=== PATIENT | female | born 1950 | race Caucasian/White ===

== ENCOUNTER → 2017-09-08 | Outpatient (CLI) | payer OTHER ==
--- NOTE | 2017-09-10 10:15 | KCIC ---
DATE: 09/08/2017 EXAM: MAMMO ISAI SCREENING BILATERAL HISTORY: Previous left breast cancer COMPARISON: 09/06/2015 The breast parenchyma shows scattered fibroglandular densities. Breast parenchyma level B. FINDINGS: 2-D and 3-D tomosynthesis imaging was performed in CC and MLO projections. There is an unchanged spiculated density with coarse calcifications and associated skin thickening/retraction centrally in the left breast. These coarse calcifications have slowly progressed. No suspicious microcalcifications have developed. The appearance is otherwise unchanged since multiple previous studies. No new or enlarging breast densities are seen. IMPRESSION: Stable mammograms without evidence of malignancy. BI-RADS CATEGORY: 2 BENIGN FINDING(S) RECOMMENDED FOLLOW-UP: 12M 12 MONTH FOLLOW-UP PQRS compliance statement: Patient information was entered into a reminder system with a target due date for the next mammogram. Mammography is a sensitive method for finding small breast cancers, but it does not detect them all and is not a substitute for careful clinical examination. A negative mammogram does not negate a clinically suspicious finding and should not result in delay in biopsying a clinically suspicious abnormality. "Our facility is accredited by the [employer] Mammography [employer]."
== END | disposition home or self-care (01) ==
LOC: KCIC MAMMO 10:23
PROVIDERS: ATTEND Internal Medicine
DX: Z12.31 Encounter for screening mammogram for malignant neoplasm of breast (principal)
CPT/HCPCS: 77063; G0202; 77067

== ENCOUNTER → 2018-09-09 | Outpatient (CLI) | payer MEDICARE, OTHER ==
--- NOTE | 2018-09-09 14:08 | KCIC ---
EXAM: Bilateral digital screening mammogram with tomosynthesis. HISTORY: 67-year-old female with a history of left breast cancer, status post left breast conservation therapy, presents for screening mammography. TECHNIQUE: Full-field digital craniocaudal and mediolateral oblique 2D and 3D tomosynthesis images of both breasts are obtained for evaluation. Computer aided detection with Digital Message DisplayD software version 9.3 was applied. COMPARISON: 09/08/2017 and 09/06/2016 BREAST PARENCHYMAL DENSITY: Level B - Scattered fibroglandular densities. FINDINGS: There is stable increased density, architectural distortion and benign coarse calcifications within the 6:00 position of the right breast, consistent with a lumpectomy bed. There is no new suspicious mammographic finding. IMPRESSION: BI-RADS Category 2: Benign finding(s). RECOMMENDATION: Annual mammography is recommended. If your mammogram demonstrates that you have dense breast tissue, which could hide abnormalities, and if you have other risk factors for breast cancer that have been identified, you might benefit from supplemental screening tests that may be suggested by your ordering physician. Dense breast tissue, in and of itself, is a relatively common condition. This information is not provided to cause undue concern, but rather to raise your awareness and to promote discussion with your physician regarding the presence of other risk factors, in addition to dense breast tissue. A report of your mammography results will be sent to you and your physician. You should contact your physician if you have any questions or concerns regarding this report. Mammography is a sensitive method for finding small breast cancers, but it does not detect them all and is not a substitute for careful clinical examination. A negative mammogram does not negate a clinically suspicious finding and should not result in delay in biopsying a clinically suspicious abnormality. PQRS compliance statement - Patient information was entered into a reminder system with a target due date for the next mammogram. "Our facility is accredited by the [employer]ammography [employer]." Electronically signed by: Leti Melo MD (09/09/2018 2:05 PM) [id number]
== END | disposition home or self-care (01) ==
LOC: KCIC MAMMO 12:02
PROVIDERS: ATTEND Internal Medicine Hematology & Oncology
DX: Z12.31 Encounter for screening mammogram for malignant neoplasm of breast (principal); Z85.3 Personal history of malignant neoplasm of breast
CPT/HCPCS: 77063; 77067

== ENCOUNTER 2018-10-21 14:05 | Emergency (ER) | payer OTHER, MEDICARE ==
[~2018-10-21] VITALS: Ht 160 cm; Wt 80.7 kg
[2018-10-21] MEDS ORDERED: ONDANSETRON PF 4 MG/2 ML VIAL. ONE (14:10)
[2018-10-21] MEDS ORDERED: IV NORMAL SALINE 1000ML BAG 1,000 ML IV SCH (14:23)
[2018-10-21] MEDS ORDERED: MORPHINE SULFATE 4 MG/ML VIAL. IV/SQ PRN (14:30)
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
[2018-10-21] MEDS ORDERED: ONDANSETRON PF 4 MG/2 ML VIAL. IM ONE (14:45)
[2018-10-21] MEDS ORDERED: IOHEXOL 300 MG/ML 100ML VIAL. IV ONE (15:00)
[2018-10-21] MEDS ORDERED: IOHEXOL 300 MG/ML 100ML VIAL. ONE (15:01)
[2018-10-21 15:09] LABS: BASO # 0.1 x10^3/uL (0.0-0.2); BASO % 1 % (0-3); EOS # 0.3 x10^3/uL (0.0-0.7); EOS % 2 % (0-3); HEMATOCRIT 40.3 % (36.0-47.0); HEMOGLOBIN 13.7 g/dL (12.0-15.5); LYMPH # 2.6 x10^3/uL (1.0-4.8); LYMPH % 19 % (24-48); MEAN CORPUSCULAR HEMOGLOBIN 30 pg (25-35); MEAN CORPUSCULAR HGB CONC 34 g/dL (31-37); MEAN CORPUSCULAR VOLUME 90 fL (79-100); MONO % 7 % (0-9); NEUT # 9.4 x10^3uL (1.8-7.7); NEUT % 71 % (31-73); PLATELET COUNT 270 x10^3/uL (140-400); RED CELL DISTRIBUTION WIDTH 13.3 % (11.5-14.5); WHITE BLOOD COUNT 13.3 x10^3/uL (4.0-11.0)
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
[2018-10-21] MEDS ORDERED: CONTRAST GIVEN. MC PRN (15:15)
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
[2018-10-21 15:30] LABS: CALCIUM 8.1 mg/dL (8.5-10.1); CREATININE 0.7 mg/dL (0.6-1.0); POTASSIUM 4.2 mmol/L (3.5-5.1)
[2018-10-21 15:35] LABS: ALBUMIN 3.3 g/dL (3.4-5.0); ALBUMIN/GLOBULIN RATIO 0.9 (1.0-1.7); TOTAL BILIRUBIN 0.3 mg/dL (0.2-1.0); TOTAL PROTEIN 6.9 g/dL (6.4-8.2)
--- NOTE | 2018-10-21 15:47 | EKG ---
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
[2018-10-21] MEDS ORDERED: HYDROmorphone 2 MG/ML VIAL ONE (16:08)
[2018-10-21] MEDS ORDERED: HYDROmorphone 2 MG/ML VIAL IV ONE (16:15)
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
[2018-10-21 16:30] VITALS: BP 153/65
[2018-10-21] MEDS ORDERED: ONDANSETRON PF 4 MG/2 ML VIAL. IV ONE (17:15)
[2018-10-21 17:29] LABS: BILIRUBIN,URINE NEGATIVE (NEG); CLARITY,URINE CLEAR; COLOR,URINE YELLOW; NITRITE,URINE NEGATIVE (NEG); PROTEIN,URINE NEGATIVE (NEG-TRACE); UROBILINOGEN,URINE 0.2 mg/dL (0.2 mg/dL)
[2018-10-21 17:40] LABS: BACTERIA,URINE FEW /HPF (0-FEW); SQUAMOUS EPITHELIAL CELL,UR OCC /LPF; WBC,URINE OCC /HPF (0-4)
[2018-10-21] MEDS ORDERED: ONDA4TAB7 PO (17:49)
[2018-10-21] MEDS ORDERED: OXYC1TAB15 PO (17:49)
== END 2018-10-21 18:33 | disposition home or self-care (01) ==
LOC: ER 14:05
DX: S22.31XA Fracture of one rib, right side, initial encounter for closed fracture (principal); S32.008A Other fracture of unspecified lumbar vertebra, initial encounter for closed fracture; M79.642 Pain in left hand; K80.20 Calculus of gallbladder without cholecystitis without obstruction; F32.9 Major depressive disorder, single episode, unspecified; E11.9 Type 2 diabetes mellitus without complications; E78.00 Pure hypercholesterolemia, unspecified; I10 Essential (primary) hypertension; Z90.710 Acquired absence of both cervix and uterus; Z96.659 Presence of unspecified artificial knee joint; Z88.0 Allergy status to penicillin; Z91.040 Latex allergy status; V43.62XA Car passenger injured in collision with other type car in traffic accident, initial encounter; Y93.89 Activity, other specified; Y92.410 Unspecified street and highway as the place of occurrence of the external cause; Y99.8 Other external cause status
CPT/HCPCS: 36415; 71100; 71260; 73130; 74177; 80053; 81001; 83690; 84484; 85025; 93005; 96372; 96374; 96375; 99285; J1170; J2060; J2270; J2405; J7030; Q9967; 99284

== ENCOUNTER → 2019-09-10 | Outpatient (CLI) | payer MEDICARE, OTHER ==
[~2019-09-10] MED LIST: ONDA4TAB7 PO; OXYC1TAB15 PO
--- NOTE | 2019-09-10 13:15 | KCIC ---
Bilateral digital screening mammograms with 3-D tomosynthesis: Reason for examination: Routine screening. History of left breast cancer with lumpectomy in 2009. Comparison is made to previous studies dated 09/09/2018 and 09/08/2017. Bilateral mammograms in CC and oblique projections were obtained with 2-D imaging and 3-D tomosynthesis imaging on a Siemens Inspiration unit and reviewed on the workstation. Interpretation was made with the benefit of CAD. The skin and nipples show no abnormalities. No abnormal axillary lymph nodes are seen. The breast parenchyma shows scattered fatty and fibroglandular density. (Breast density: Category B.) There are postop changes in the left breast from previous lumpectomy with coarse calcification at the lumpectomy site. There appear to be 3 new circumscribed nodules present in the right breast with the largest located in the 12:00 B position measuring 6.7 mm in greatest dimension and showing a calcified rim. This may represent fat necrosis. Recommend further evaluation with ultrasound. There are no other new dominant masses, suspicious calcifications or architectural distortion. Impression: Small circumscribed lesions in the right breast with the largest measuring approximately 6.7 mm in size showing a calcified rim. This may reflect fat necrosis. Recommend follow-up with ultrasound. BI-RADS Category 0: Incomplete. Needs additional imaging evaluation "Our facility is accredited by the [employer] Mammography Program." This patient's information has been entered into a reminder system for the patient to be notified with the results of her examination and a target date for the next mammogram. Electronically signed by: Asuncion Kern MD (09/10/2019 1:13 PM) [id number]
== END | disposition home or self-care (01) ==
LOC: KCIC MAMMO 09:17
PROVIDERS: ATTEND Internal Medicine Hematology & Oncology
DX: Z12.31 Encounter for screening mammogram for malignant neoplasm of breast (principal); N64.89 Other specified disorders of breast; Z85.3 Personal history of malignant neoplasm of breast
CPT/HCPCS: 77063; 77067

== ENCOUNTER → 2019-09-16 | Outpatient (CLI) | payer MEDICARE, OTHER ==
--- NOTE | 2019-09-16 09:52 | KCIC ---
BREAST RIGHT Clinical Indication: Abnormal screening mammogram. Comparison: Bilateral mammogram 09/10/2019 and 09/09/2018. TECHNIQUE: Real-time ultrasound imaging of the right breast is performed. Findings: Corresponding to the largest nodule on mammogram, at the 12:00 position 3 cm from the nipple there is a 5 mm cystic lesion with a thin echogenic rim that may be an oil cyst. At the 12:00 position 1 cm from the nipple there is a 3 mm complicated cyst. At the 1:00 position 5 cm from the nipple there is a 4 mm complicated cyst. At the 12:00 position 6 cm from the nipple there is a 5 mm probable septated cyst. At the 12:00 position 9 cm from the nipple there is a 7 mm benign cyst. There is no abnormal axillary lymph node. IMPRESSION: 1. At the 12:00 to 1:00 positions of the right breast there are several cysts or complicated cysts. Recommend right breast ultrasound follow-up in 6 months. 2. BI-RADS Category 3, probably benign. Electronically signed by: Papo Quevedo MD (09/16/2019 9:49 AM) [facility]
== END | disposition home or self-care (01) ==
LOC: KCIC US 07:57
PROVIDERS: ATTEND Internal Medicine Hematology & Oncology
DX: N60.01 Solitary cyst of right breast (principal)
CPT/HCPCS: 76641

== ENCOUNTER → 2020-06-15 | Outpatient (CLI) | payer MEDICARE, OTHER ==
--- NOTE | 2020-06-15 13:15 | KCIC ---
Right breast ultrasound COMPARISON: Right breast ultrasound September 16, 2019, mammogram September 10, 2019. HISTORY: Follow-up of probably benign right breast cystic lesions. FINDINGS: At the right upper breast are scattered subcentimeter unilocular anechoic and hypoechoic cystic lesions which are stable to the prior study some which could be coiled cysts based on the prior mammographic features. The imaging features are probably benign. No suspicious abnormality. No axillary adenopathy. IMPRESSION: Stable probably benign right breast cysts as described above. Attention on follow-up right breast ultrasound in one year is advised to document continued stability. BI-RADS Category 3: Probably benign Electronically signed by: Olu Obando MD (06/15/2020 1:12 PM) [id number]
== END | disposition home or self-care (01) ==
LOC: KCIC US 12:28
PROVIDERS: ATTEND Internal Medicine Hematology & Oncology
DX: C50.112 Malignant neoplasm of central portion of left female breast (principal); R92.8 Other abnormal and inconclusive findings on diagnostic imaging of breast; Z17.0 Estrogen receptor positive status [ER+]
CPT/HCPCS: 76641

== ENCOUNTER → 2020-09-26 | Outpatient (CLI) | payer MEDICARE, OTHER ==
--- NOTE | 2020-09-26 15:10 | KCIC ---
Bilateral diagnostic digital mammograms with 3-D tomosynthesis: Reason for examination: History of left breast cancer with lumpectomy. Follow-up for right breast nodules. Comparison is made to previous studies dated back to 09/06/2016. Bilateral mammograms in CC and oblique projections were obtained with 2-D imaging and 3-D tomosynthesis imaging on a Siemens Inspiration unit and reviewed on the workstation. Interpretation was made with the benefit of CAD. The skin and nipples show no interval changes. No abnormal axillary lymph nodes are seen. The breast parenchyma is predominantly fatty. (Breast density: Category A.) There continues be a rim calcified nodule consistent with fat necrosis at the 12:00 position of the right breast. There are also faint nodules anterior and posterior to the rim calcified nodule also probably representing fat necrosis. The left breast shows postoperative changes from lumpectomy. There are no new left breast nodules are suspicious calcifications. There are no new dominant masses, suspicious calcifications or architectural distortion. Impression: Postop changes in the left breast. Small faint benign-appearing nodules anterior and posterior to the rim calcified fat necrosis at the 12:00 position of the right breast. Ultrasound to follow. BI-RAD Category 0: Incomplete. Needs additional imaging evaluation. Right breast ultrasound: Right breast ultrasound including evaluation of the axillary regions of the right breast was performed. At the 12:00 position 1 cm from the nipple, there is a 2.7 mm cyst. At the 12:00 position 3 cm from the nipple, there is a 5.8 mm cystic lesion with echogenic rim consistent with the rim calcified fat necrosis seen on mammogram. At the 12:00 position 6 cm from the nipple, there is a small 3.5 mm nodule consistent with cystic fat necrosis. At the 12:00 position 9 cm from the nipple, there is a 6.5 mm cystic lesion. In the 12:00 position 8 cm from the nipple, there is a 6.1 mm cystic lesion at the 1:00 position 5 cm from the nipple, there continues to be a 2.4 mm hypoechoic lesion consistent with fat necrosis. At the 10:00 position 6.5 cm from the nipple, there is a small 2 mm focus of minimal fibrocystic change. No suspicious-appearing nodules are seen. No abnormal appearing lymph nodes are seen in the axilla. IMPRESSION: Multiple small anechoic and hypoechoic lesions in the 12:00 and 1:00 positions consistent with cystic fat necrosis and showing no significant change. No suspicious lesion seen. Recommend routine mammographic follow-up. BI-RADS Category 2: Benign. "Our facility is accredited by the [employer] Mammography [employer]." This patient's information has been entered into a reminder system for the patient to be notified with the results of her examination and a target date for the next mammogram. Electronically signed by: Asuncion Kern MD (09/26/2020 3:06 PM) [email or web address]
== END ==
LOC: KCIC MAMMO 12:21
PROVIDERS: ATTEND Internal Medicine Hematology & Oncology
DX: R92.2 Inconclusive mammogram (principal); N63.11 Unspecified lump in the right breast, upper outer quadrant; Z90.12 Acquired absence of left breast and nipple
CPT/HCPCS: 76641; 77066; G0279; 77062

== ENCOUNTER → 2021-09-18 | Outpatient (CLI) | payer MEDICARE, OTHER ==
--- NOTE | 2021-09-18 15:17 | KCIC ---
Bilateral diagnostic digital mammograms with 3-D tomosynthesis: Reason for examination: History of left breast cancer with lumpectomy and bone metastases. No current breast complaints. Comparison is made to previous studies dated back to 09/16/2016. Bilateral mammograms in CC and oblique projections were obtained with 2-D imaging and 3-D tomosynthes is imaging on a Siemens Inspiration unit and reviewed on the workstation. Interpretation was made wit h the benefit of CAD. The skin and nipples show no abnormalities. No abnormal axillary lymph nodes are seen. The breast par enchyma shows scattered fatty and fibroglandular density. (Breast density: Category B.) There are pos top changes in the left breast with calcification at the lumpectomy site. There is some rim calcified fat necrosis in the right breast. There continues to be a small 3 mm circumscribed nodule in the ret roareolar position of the right breast 2 cm deep to the nipple. There are no other dominant masses, s uspicious calcifications or architectural distortion. Impression: Postop changes in the left breast. 3 mm circumscribed nodule in the subareolar position of the right breast 2 cm deep to the nipple. Ult rasound to follow. BI-RAD Category 0: Incomplete. Needs additional imaging evaluation. Right breast ultrasound: Comparison is made to previous studies dated 09/26/2020 and 06/15/2020. Ultrasound examination of the right breast and axilla was performed. At the 12:00 position 3 cm from the nipple, there continues to be a 6 mm rim calcified lesion consist ent with calcified fat necrosis seen be mammographically. There also appears be a small 3 mm circumsc ribed nodule with a fibrocystic appearance. No other cystic or solid or solid nodules are seen. No ab normal appearing lymph nodes are seen in the axilla. IMPRESSION: Focal area of calcified fat necrosis at the 12:00 position. Small 3 mm fibrocystic lesion at the retr oareolar position. No suspicious abnormality seen. Recommend routine mammographic follow-up. BI-RADS Category 2: Benign. "Our facility is accredited by the [employer] Mammography [employer]." This patient's information has been entered into a reminder system for the patient to be notified wit h the results of her examination and a target date for the next mammogram. Electronically signed by: Asuncion Kern MD (09/18/2021 3:14 PM) [email or web address]
== END ==
LOC: KCIC MAMMO 12:36
PROVIDERS: ATTEND Internal Medicine Hematology & Oncology
DX: N63.10 Unspecified lump in the right breast, unspecified quadrant (principal); N64.1 Fat necrosis of breast; Z85.3 Personal history of malignant neoplasm of breast
CPT/HCPCS: 76641; 77066; G0279; 77062

== ENCOUNTER 2022-03-13 19:18 | Inpatient (IN) | payer MEDICARE, OTHER ==
[~2022-03-13] VITALS: Ht 160 cm; Wt 81.0 kg
[2022-03-13] MEDS ORDERED: IV NORMAL SALINE 1000ML BAG 1,000 ML IV ONE ×2 (20:30→21:45)
[2022-03-13] MEDS ORDERED: ONDANSETRON PF 4 MG/2 ML VIAL. IVP ONE (20:30)
[2022-03-13] MEDS ORDERED: MORPHINE SULFATE 4 MG/ML INJ. IVP ONE (20:30)
[2022-03-13 21:05] LABS: BASO # 0.1 x10^3/uL (0.0-0.2); BASO % 1 % (0-3); EOS # 0.1 x10^3/uL (0.0-0.7); EOS % 1 % (0-3); HEMATOCRIT 46.1 % (36.0-47.0); HEMOGLOBIN 15.4 g/dL (12.0-15.5); LYMPH # 2.8 x10^3/uL (1.0-4.8); LYMPH % 23 % (24-48); MEAN CORPUSCULAR HEMOGLOBIN 30 pg (25-35); MEAN CORPUSCULAR HGB CONC 33 g/dL (31-37); MEAN CORPUSCULAR VOLUME 89 fL (79-100); MONO # 1.2 x10^3/uL (0.0-1.1); MONO % 10 % (0-9); NEUT # 8.1 x10^3/uL (1.8-7.7); NEUT % 66 % (31-73); PLATELET COUNT 310 x10^3/uL (140-400); RED BLOOD COUNT 5.16 x10^6/uL (3.50-5.40); RED CELL DISTRIBUTION WIDTH 13.5 % (11.5-14.5); WHITE BLOOD COUNT 12.2 x10^3/uL (4.0-11.0)
[2022-03-13 21:14] LABS: CREATININE 0.6 mg/dL (0.6-1.0); GFR 99.1; POTASSIUM 4.2 mmol/L (3.5-5.1)
[2022-03-13 21:20] LABS: ALBUMIN/GLOBULIN RATIO 0.9 (1.0-1.7); MAGNESIUM 2.7 mg/dL (1.8-2.4); TOTAL BILIRUBIN 0.7 mg/dL (0.2-1.0); TOTAL PROTEIN 8.7 g/dL (6.4-8.2)
[2022-03-13] MEDS ORDERED: IOHEXOL 300 MG/ML 100ML VIAL. IV ONE (21:30)
[2022-03-13] MEDS ORDERED: CONTRAST GIVEN. MC PRN (21:30)
[2022-03-13] MEDS ORDERED: METOCLOPRAMIDE HCL 10 MG/2 ML VIAL. IVP ONE (22:00)
--- NOTE | 2022-03-13 22:15 | RAD ---
Exam: CT of abdomen and pelvis with contrast INDICATION: Abdominal pain TECHNIQUE: Sequential axial images through the abdomen and pelvis obtained following the administrati on of 75 mL of Isovue-370 IV contrast. Sagittal and coronal reformatted images were reconstructed fro m the axial data and reviewed. Exposure: One or more of the following in the visualized dose reduction techniques were utilized for this examination: 1. Automated exposure control 2. Adjustment of the MA and/or KV according to patient size 3. Use of iterative of reconstructive technique Comparisons: None FINDINGS: Heart size is normal. No pericardial effusion. Visualized lung bases are clear. No pleural effusion. Mild diffuse hepatic steatosis. Spleen, pancreas and adrenals are unremarkable. Gallstones and within the gallbladder. No perinephric inflammation or hydronephrosis. No renal or ureteral calculi are identified. Bladder is decompressed not well evaluated. Uterus is absent. No abnormal adnexal mass. Few scattered diverticula in the sigmoid colon. Remainder of the large and small bowel are unremarkab le. Appendix is nonidentified. No free intra-abdominal air or fluid. No obstruction. Abdominal aorta has normal course and caliber. Abdominal vasculature is patent. No enlarged intra-abdominal lymph nodes are identified. No suspicious osseous lesions or acute fractures. IMPRESSION: 1. Cholelithiasis. 2. No acute process identified in the abdomen or pelvis. Electronically signed by: Rufina Lee MD (03/13/2022 10:12 PM) [facility]
[2022-03-13] MEDS ORDERED: PROCHLORPERAZINE 10 MG/2 ML VIAL. IV ONE (23:00)
--- NOTE | 2022-03-13 23:08 | PHYS DOC ---
Past Medical History Past Medical History: Cancer, Depression, Diabetes-Type II, High Cholesterol, Hypertension Past Surgical History: Cancer Surgery Additional Past Surgical Histo: lumpectomy Smoking Status: Never Smoker Alcohol Use: None Drug Use: None General Adult EDM: Chief Complaint: NAUSEA/VOMITING/DIARRHEA HPI: HPI: Patient is a 71 year old female with history of diabetes type 2, hypertension, high cholesterol, presented to the ED today complaining of 7 out of 10 epigastric abdominal pain with nausea and vomiting, symptoms have been going on for 3 days. Patient denies any diarrhea. Denies any chest pain or shortness of breath. Denies anything specifically exacerbating or relieving the symptoms Review of Systems: Review of Systems: Constitutional: Denies fever or chills. [] Eyes: Denies change in visual acuity. [] HENT: Denies nasal congestion or sore throat. [] Respiratory: Denies cough or shortness of breath. [] Cardiovascular: Denies chest pain or edema. [] GI: Reports epigastric abdominal pain with nausea and vomiting, denies bloody stools or diarrhea. [] : Denies dysuria. [] Musculoskeletal: Denies back pain or joint pain. [] Integument: Denies rash. [] Neurologic: Denies headache, focal weakness or sensory changes. [] Psychiatric: Denies depression or anxiety. [] Heart Score: C/O Chest Pain: N/A Risk Factors: Risk Factors: DM, Current or recent (<one month) smoker, HTN, HLP, family history of CAD, obesity. Risk Scores: Score 0 - 3: 2.5% MACE over next 6 weeks - Discharge Home Score 4 - 6: 20.3% MACE over next 6 weeks - Admit for Clinical Observation Score 7 - 10: 72.7% MACE over next 6 weeks - Early Invasive Strategies Current Medications: Current Medications Medications (Trade) Dose Ordered Sig/Denise Start Time Stop Time Status Last Admin Dose Admin Info (CONTRAST GIVEN -- Rx MONITORING) 1 each PRN DAILY PRN 03/13/22 21:30 03/15/22 21:29 Iohexol (Omnipaque 300 Mg/ml) 75 ml 1X ONCE 03/13/22 21:30 03/13/22 21:31 DC 03/13/22 21:43 75 ML Metoclopramide HCl (Reglan Vial) 10 mg 1X ONCE 03/13/22 22:00 03/13/22 22:01 DC 03/13/22 21:58 10 MG Morphine Sulfate (Morphine Sulfate) 4 mg 1X ONCE 03/13/22 20:30 03/13/22 20:31 DC 03/13/22 20:55 4 MG Ondansetron HCl (Zofran) 4 mg 1X ONCE 03/13/22 20:30 03/13/22 20:31 DC 03/13/22 20:56 4 MG Prochlorperazine Edisylate (Compazine) 10 mg 1X ONCE 03/13/22 23:00 03/13/22 23:01 UNV Sodium Chloride 1,000 ml @ 1,000 mls/hr 1X ONCE 03/13/22 21:45 03/13/22 22:44 DC 03/13/22 21:45 1,000 MLS/HR Allergies: Allergies: Allergies Coded Allergies Type Severity Reaction Last Updated Verified Penicillins Allergy Intermediate 03/13/22 Yes latex Allergy Intermediate Unknown 03/13/22 Yes Physical Exam: PE: Constitutional: Well developed, well nourished, no acute distress, non-toxic appearance. [] HENT: Normocephalic, atraumatic, bilateral external ears normal, oropharynx moist, no oral exudates, nose normal. [] Eyes: PERRLA, EOMI, conjunctiva normal, no discharge. [] Neck: Normal range of motion, no tenderness, supple, no stridor. [] Cardiovascular:Heart rate regular rhythm, no murmur [] Lungs & Thorax: Bilateral breath sounds clear to auscultation [] Abdomen: Bowel sounds normal, soft, tenderness to the right upper quadrant, epigastric region, negative Womack sign, no right lower quadrant tenderness, no masses, no pulsatile masses. [] Skin: Warm, dry, no erythema, no rash. [] Back: No tenderness, no CVA tenderness. [] Extremities: No tenderness, no cyanosis, no clubbing, ROM intact, no edema. [] Neurologic: Alert and oriented X 3, normal motor function, normal sensory function, no focal deficits noted. [] Psychologic: Affect normal, judgement normal, mood normal. [] Current Patient Data: Labs: Laboratory Tests Test 03/13/22 20:55 White Blood Count 12.2 x10^3/uL (4.0-11.0) H Red Blood Count 5.16 x10^6/uL (3.50-5.40) Hemoglobin 15.4 g/dL (12.0-15.5) Hematocrit 46.1 % (36.0-47.0) Mean Corpuscular Volume 89 fL (79-100) Mean Corpuscular Hemoglobin 30 pg (25-35) Mean Corpuscular Hemoglobin Concent 33 g/dL (31-37) Red Cell Distribution Width 13.5 % (11.5-14.5) Platelet Count 310 x10^3/uL (140-400) Neutrophils (%) (Auto) 66 % (31-73) Lymphocytes (%) (Auto) 23 % (24-48) L Monocytes (%) (Auto) 10 % (0-9) H Eosinophils (%) (Auto) 1 % (0-3) Basophils (%) (Auto) 1 % (0-3) Neutrophils # (Auto) 8.1 x10^3/uL (1.8-7.7) H Lymphocytes # (Auto) 2.8 x10^3/uL (1.0-4.8) Monocytes # (Auto) 1.2 x10^3/uL (0.0-1.1) H Eosinophils # (Auto) 0.1 x10^3/uL (0.0-0.7) Basophils # (Auto) 0.1 x10^3/uL (0.0-0.2) Sodium Level 135 mmol/L (136-145) L Potassium Level 4.2 mmol/L (3.5-5.1) Chloride Level 99 mmol/L (98-107) Carbon Dioxide Level 21 mmol/L (21-32) Anion Gap 15 (6-14) H Blood Urea Nitrogen 39 mg/dL (7-20) H Creatinine 0.6 mg/dL (0.6-1.0) Estimated GFR (Cockcroft-Gault) 99.1 BUN/Creatinine Ratio 65 (6-20) H Glucose Level 169 mg/dL (70-99) H Calcium Level 9.0 mg/dL (8.5-10.1) Magnesium Level 2.7 mg/dL (1.8-2.4) H Total Bilirubin 0.7 mg/dL (0.2-1.0) Aspartate Amino Transferase (AST) 41 U/L (15-37) H Alanine Aminotransferase (ALT) 38 U/L (14-59) Alkaline Phosphatase 88 U/L (46-116) Total Protein 8.7 g/dL (6.4-8.2) H Albumin 4.0 g/dL (3.4-5.0) Albumin/Globulin Ratio 0.9 (1.0-1.7) L Lipase 221 U/L (73-393) Ethyl Alcohol Level < 10 mg/dL (0-10) Laboratory Tests 03/13/22 20:55 Laboratory Tests 03/13/22 20:55 Vital Signs: Vital Signs Date Time Temp Pulse Resp B/P (MAP) Pulse Ox O2 Delivery O2 Flow Rate FiO2 03/13/22 20:55 18 03/13/22 19:56 98.3 83 180/85 (116) 100 Room Air 98.3 EKG: EKG: [] Radiology/Procedures: Radiology/Procedures: []PROCEDURE: CT ABD PELV W/ IV CONTRST ONLY Exam: CT of abdomen and pelvis with contrast INDICATION: Abdominal pain TECHNIQUE: Sequential axial images through the abdomen and pelvis obtained following the administration of 75 mL of Isovue-370 IV contrast. Sagittal and coronal reformatted images were reconstructed from the axial data and reviewed. Exposure: One or more of the following in the visualized dose reduction techniques were utilized for this examination: 1. Automated exposure control 2. Adjustment of the MA and/or KV according to patient size 3. Use of iterative of reconstructive technique Comparisons: None FINDINGS: Heart size is normal. No pericardial effusion. Visualized lung bases are clear. No pleural effusion. Mild diffuse hepatic steatosis. Spleen, pancreas and adrenals are unremarkable. Gallstones and within the gallbladder. No perinephric inflammation or hydronephrosis. No renal or ureteral calculi are identified. Bladder is decompressed not well evaluated. Uterus is absent. No abnormal adnexal mass. Few scattered diverticula in the sigmoid colon. Remainder of the large and small bowel are unremarkable. Appendix is nonidentified. No free intra-abdominal air or fluid. No obstruction. Abdominal aorta has normal course and caliber. Abdominal vasculature is patent. No enlarged intra-abdominal lymph nodes are identified. No suspicious osseous lesions or acute fractures. IMPRESSION: 1. Cholelithiasis. 2. No acute process identified in the abdomen or pelvis. Electronically signed by: Rufina Braswell MD (03/13/2022 10:12 PM) [facility] DICTATED and SIGNED BY: RUFINA BRASWELL MD DATE: 03/13/222206 Course & Med Decision Making: Course & Med Decision Making Pertinent Labs and Imaging studies reviewed. (See chart for details) This a 71-year-old female patient presenting to the ED today with complaints of epigastric abdominal pain, nausea vomiting, symptoms for 3 days. CBC with a WBC of 12.2, CMP with creatinine of 0.6, BUN of 39, glucose of 169 with anion gap of 15. AST 41, ALT 38, ALK 88 CT of the abdomen and pelvis noted for cholelithiasis otherwise no acute findings Patient was given a liter of fluids, morphine, Zofran, still complaining of nausea, given Reglan, another liter of fluid, still complaining of nausea. Given Compazine [address] Medina who will follow up with patient Patient was admitted under Dr. Arredondo. Dr. Bradley will give report in the morning Dragon Disclaimer: Judie Disclaimer: This electronic medical record was generated, in whole or in part, using a voice recognition dictation system. Departure Departure Impression: Primary Impression: Cholelithiasis Qualified Codes: K80.20 - Calculus of gallbladder without cholecystitis without obstruction Additional Impressions: Intractable nausea and vomiting Epigastric abdominal pain Disposition: ADMITTED INPATIENT Condition: STABLE Referrals: ALLYSON ZAYAS MD (PCP) STEPHANIE NETTLES APRN Mar 13, 2022 23:07
--- NOTE | 2022-03-13 23:20 | RAD ---
EXAM: ULTRASOUND ABDOMEN LIMITED CLINICAL HISTORY: Reason: epigastric pain r/o gallstones / Spl. Instructions: / History: COMPARISON: None available. TECHNIQUE: Limited ultrasound examination of the right upper quadrant of the abdomen was performed. FINDINGS: Liver contour is normal. Increased echogenicity of the liver. Gallbladder is partially distended. Gal lstones and within the gallbladder. No pericholecystic fluid or wall thickening. Common bile duct is not well visualized. Right kidney measures 11.5 cm in long axis. No hydronephrosis. Visualized portions aorta and IVC are unremarkable. IMPRESSION: 1. Cholelithiasis without secondary evidence for acute cholecystitis. 2. Hepatic steatosis. 3. No right-sided hydronephrosis. Electronically signed by: Rufina Lee MD (03/13/2022 11:18 PM) [facility]
[2022-03-14] MEDS ORDERED: fentaNYL PF VIAL 100 MCG/2 ML VIAL IVP PRN ×3 (00:15→12:45)
[2022-03-14] MEDS ORDERED: METOCLOPRAMIDE HCL 10 MG/2 ML VIAL. IVP PRN (00:15)
[2022-03-14] MEDS ORDERED: ONDANSETRON PF 4 MG/2 ML VIAL. IVP PRN ×2 (00:15→09:00)
[2022-03-14] MEDS ORDERED: IV NORMAL SALINE 1000ML BAG 1,000 ML IV ONE (00:15)
--- NOTE | 2022-03-14 08:30 | PDOC2 ---
CONSULT Date of Consult Date of Consult DATE: 03/14/22 TIME: 08:26 Reason for Consult Reason for Consult: cholelithiasis Referring Physician Referring Physician: ER Identification/Chief Complaint Chief Complaint vomiting Source Source: Chart review, Patient History of Present Illness Reason for Visit: Started acutely friday with vomiting. Continued Friday, was severe. Has subsided but continued and associated ongoing nausea. feels feverish. Denies diarrhea. Denies any significant pain. Past Medical History Cardiovascular: HTN, Hyperlipidemia Endocrine: Diabetes Past Surgical History Past Surgical History: Hysterectomy, Other (lumpectomy ) Family History Family History: Other (noncontributory to current illness ) Social History No ALCOHOL: none Drugs: None Lives: Alone Current Problem List Problem List Problems Medical Problems: (1) Cholelithiasis Status: Acute (2) Epigastric abdominal pain Status: Acute (3) Intractable nausea and vomiting Status: Acute Current Medications Current Medications Current Medications Sodium Chloride 1,000 ml @ 1,000 mls/hr 1X ONCE IV Last administered on 03/13/22at 20:30; Start 03/13/22 at 20:30; Stop 03/13/22 at 21:29; Status DC Ondansetron HCl (Zofran) 4 mg 1X ONCE IVP Last administered on 03/13/22at 20:56; Start 03/13/22 at 20:30; Stop 03/13/22 at 20:31; Status DC Morphine Sulfate (Morphine Sulfate) 4 mg 1X ONCE IVP Last administered on 03/13/22at 20:55; Start 03/13/22 at 20:30; Stop 03/13/22 at 20:31; Status DC Iohexol (Omnipaque 300 Mg/ml) 75 ml 1X ONCE IV Last administered on 03/13/22at 21:43; Start 03/13/22 at 21:30; Stop 03/13/22 at 21:31; Status DC Info (CONTRAST GIVEN -- Rx MONITORING) 1 each PRN DAILY PRN MC SEE COMMENTS; Start 03/13/22 at 21:30; Stop 03/15/22 at 21:29 Sodium Chloride 1,000 ml @ 1,000 mls/hr 1X ONCE IV Last administered on 03/13/22at 21:45; Start 03/13/22 at 21:45; Stop 03/13/22 at 22:44; Status DC Metoclopramide HCl (Reglan Vial) 10 mg 1X ONCE IVP Last administered on 03/13/22at 21:58; Start 03/13/22 at 22:00; Stop 03/13/22 at 22:01; Status DC Prochlorperazine Edisylate (Compazine) 10 mg 1X ONCE IV Last administered on 03/13/22at 23:30; Start 03/13/22 at 23:00; Stop 03/13/22 at 23:01; Status DC Ondansetron HCl (Zofran) 4 mg PRN Q8HRS PRN IVP NAUSEA/VOMITING; Start 03/14/22 at 00:15; Stop 03/15/22 at 00:14 Fentanyl Citrate (Fentanyl 2ml Vial) 50 mcg PRN Q1HR PRN IVP PAIN; Start at 00:15; Stop 03/15/22 at 00:14 Sodium Chloride 1,000 ml @ 100 mls/hr 1X ONCE IV ; Start 03/14/22 at 00:15; Stop 03/14/22 at 10:14 Metoclopramide HCl (Reglan Vial) 10 mg TID PRN IVP NAUSEA/VOMITING; Start 03/14/22 at 00:15 Active Scripts Active Percocet 5-325 Mg Tablet (Oxycodone/Acetaminophen) 1 Each Tablet 1 Tab PO QID Zofran (Ondansetron Hcl) 4 Mg Tablet 1 Tab PO Q6HRS Allergies Allergies: Coded Allergies: Penicillins (Verified Allergy, Intermediate, 03/13/22) latex (Verified Allergy, Intermediate, Unknown, 03/13/22) ROS General: YES: Fatigue, Malaise PSYCHOLOGICAL ROS: No: Anxiety, Depression Eyes: No Blurry vision, No Double vision HEENT: No: Heacaches, Sore Throat Hematological and Lymphatic: No: Bleeding Problems, Blood Clots Respiratory: No: Cough, SOB with excertion Cardiovascular: No Chest Pain, No Palpitations Gastrointestinal: Yes Other (see hpi) Genitourinary: No Dysuria, No Hematuria Musculoskeletal: No Joint Pain, No Muscle Pain Neurological: No Impaired Coord/balance, No Numbness/Tingling Skin: No Pruritus, No Rash Physical Exam General: Alert, Oriented X3, Cooperative HEENT: Atraumatic, PERRLA Lungs: Clear to auscultation, Normal air movement Heart: Regular rate, Normal S1, Normal S2 Abdomen: Soft, Other (epigastric TTP ) Extremities: No clubbing, No cyanosis Skin: No rashes, No breakdown Neuro: Normal gait, Normal speech Psych/Mental Status: Mental status NL, Mood NL MUSCULOSKELETAL: No deformity, No swelling Vitals VITALS Vital Signs Date Time Temp Pulse Resp B/P (MAP) Pulse Ox O2 Delivery O2 Flow Rate FiO2 03/13/22 21:24 75 20 157/68 (97) 99 Room Air 03/13/22 19:56 98.3 98.3 Labs Labs Laboratory Tests Test 03/13/22 20:55 03/14/22 01:55 White Blood Count 12.2 x10^3/uL (4.0-11.0) Red Blood Count 5.16 x10^6/uL (3.50-5.40) Hemoglobin 15.4 g/dL (12.0-15.5) Hematocrit 46.1 % (36.0-47.0) Mean Corpuscular Volume 89 fL (79-100) Mean Corpuscular Hemoglobin 30 pg (25-35) Mean Corpuscular Hemoglobin Concent 33 g/dL (31-37) Red Cell Distribution Width 13.5 % (11.5-14.5) Platelet Count 310 x10^3/uL (140-400) Neutrophils (%) (Auto) 66 % (31-73) Lymphocytes (%) (Auto) 23 % (24-48) Monocytes (%) (Auto) 10 % (0-9) Eosinophils (%) (Auto) 1 % (0-3) Basophils (%) (Auto) 1 % (0-3) Neutrophils # (Auto) 8.1 x10^3/uL (1.8-7.7) Lymphocytes # (Auto) 2.8 x10^3/uL (1.0-4.8) Monocytes # (Auto) 1.2 x10^3/uL (0.0-1.1) Eosinophils # (Auto) 0.1 x10^3/uL (0.0-0.7) Basophils # (Auto) 0.1 x10^3/uL (0.0-0.2) Sodium Level 135 mmol/L (136-145) Potassium Level 4.2 mmol/L (3.5-5.1) Chloride Level 99 mmol/L (98-107) Carbon Dioxide Level 21 mmol/L (21-32) Anion Gap 15 (6-14) Blood Urea Nitrogen 39 mg/dL (7-20) Creatinine 0.6 mg/dL (0.6-1.0) Estimated GFR (Cockcroft-Gault) 99.1 BUN/Creatinine Ratio 65 (6-20) Glucose Level 169 mg/dL (70-99) Calcium Level 9.0 mg/dL (8.5-10.1) Magnesium Level 2.7 mg/dL (1.8-2.4) Total Bilirubin 0.7 mg/dL (0.2-1.0) Aspartate Amino Transf (AST/SGOT) 41 U/L (15-37) Alanine Aminotransferase (ALT/SGPT) 38 U/L (14-59) Alkaline Phosphatase 88 U/L (46-116) Total Protein 8.7 g/dL (6.4-8.2) Albumin 4.0 g/dL (3.4-5.0) Albumin/Globulin Ratio 0.9 (1.0-1.7) Lipase 221 U/L (73-393) Ethyl Alcohol Level < 10 mg/dL (0-10) SARS-CoV-2 Antigen (Rapid) Negative (NEGATIVE) Laboratory Tests Test 03/13/22 20:55 03/14/22 01:55 White Blood Count 12.2 x10^3/uL (4.0-11.0) Red Blood Count 5.16 x10^6/uL (3.50-5.40) Hemoglobin 15.4 g/dL (12.0-15.5) Hematocrit 46.1 % (36.0-47.0) Mean Corpuscular Volume 89 fL (79-100) Mean Corpuscular Hemoglobin 30 pg (25-35) Mean Corpuscular Hemoglobin Concent 33 g/dL (31-37) Red Cell Distribution Width 13.5 % (11.5-14.5) Platelet Count 310 x10^3/uL (140-400) Neutrophils (%) (Auto) 66 % (31-73) Lymphocytes (%) (Auto) 23 % (24-48) Monocytes (%) (Auto) 10 % (0-9) Eosinophils (%) (Auto) 1 % (0-3) Basophils (%) (Auto) 1 % (0-3) Neutrophils # (Auto) 8.1 x10^3/uL (1.8-7.7) Lymphocytes # (Auto) 2.8 x10^3/uL (1.0-4.8) Monocytes # (Auto) 1.2 x10^3/uL (0.0-1.1) Eosinophils # (Auto) 0.1 x10^3/uL (0.0-0.7) Basophils # (Auto) 0.1 x10^3/uL (0.0-0.2) Sodium Level 135 mmol/L (136-145) Potassium Level 4.2 mmol/L (3.5-5.1) Chloride Level 99 mmol/L (98-107) Carbon Dioxide Level 21 mmol/L (21-32) Anion Gap 15 (6-14) Blood Urea Nitrogen 39 mg/dL (7-20) Creatinine 0.6 mg/dL (0.6-1.0) Estimated GFR (Cockcroft-Gault) 99.1 BUN/Creatinine Ratio 65 (6-20) Glucose Level 169 mg/dL (70-99) Calcium Level 9.0 mg/dL (8.5-10.1) Magnesium Level 2.7 mg/dL (1.8-2.4) Total Bilirubin 0.7 mg/dL (0.2-1.0) Aspartate Amino Transf (AST/SGOT) 41 U/L (15-37) Alanine Aminotransferase (ALT/SGPT) 38 U/L (14-59) Alkaline Phosphatase 88 U/L (46-116) Total Protein 8.7 g/dL (6.4-8.2) Albumin 4.0 g/dL (3.4-5.0) Albumin/Globulin Ratio 0.9 (1.0-1.7) Lipase 221 U/L (73-393) Ethyl Alcohol Level < 10 mg/dL (0-10) SARS-CoV-2 Antigen (Rapid) Negative (NEGATIVE) Assessment/Plan Assessment/Plan cholelithiasis Vomiting DM will tentatively plan lap armani today LUDIN LAZARO APRN Mar 14, 2022 08:30
--- NOTE | 2022-03-14 08:53 | PDOC1 ---
History and Physical Date of Service: DOS: DATE: 03/14/22 TIME: 08:48 Chief Complaint: Chief Complain: Nausea vomiting History of Present Illness: HPI: 71 year old female with history of diabetes type 2, hypertension, high cholesterol, presented to the ED today complaining of 7 out of 10 epigastric abdominal pain with nausea and vomiting, symptoms have been going on for 3 days. Patient denies any diarrhea. Denies any chest pain or shortness of breath. Denies anything specifically exacerbating or relieving the symptoms Past Medical/Surgical History: PMH/PSH: Past Medical History: Cancer, Depression, Diabetes-Type II, High Cholesterol, Hypertension Past Surgical History: lumpectomy Allergies: Allergies: Coded Allergies: Penicillins (Verified Allergy, Intermediate, 03/13/22) latex (Verified Allergy, Intermediate, Unknown, 03/13/22) Family History: Family History: Reviewed with no relative findings in the chart Social History: Social History: Smoking Status: Never Smoker Alcohol Use: None Drug Use: None Current Medications: Current Medications Current Medications Sodium Chloride 1,000 ml @ 1,000 mls/hr 1X ONCE IV Last administered on 03/13/22at 20:30; Start 03/13/22 at 20:30; Stop 03/13/22 at 21:29; Status DC Ondansetron HCl (Zofran) 4 mg 1X ONCE IVP Last administered on 03/13/22at 20:56; Start 03/13/22 at 20:30; Stop 03/13/22 at 20:31; Status DC Morphine Sulfate (Morphine Sulfate) 4 mg 1X ONCE IVP Last administered on 03/13/22at 20:55; Start 03/13/22 at 20:30; Stop 03/13/22 at 20:31; Status DC Iohexol (Omnipaque 300 Mg/ml) 75 ml 1X ONCE IV Last administered on 03/13/22at 21:43; Start 03/13/22 at 21:30; Stop 03/13/22 at 21:31; Status DC Info (CONTRAST GIVEN -- Rx MONITORING) 1 each PRN DAILY PRN MC SEE COMMENTS; Start 03/13/22 at 21:30; Stop 03/15/22 at 21:29 Sodium Chloride 1,000 ml @ 1,000 mls/hr 1X ONCE IV Last administered on 03/13/22at 21:45; Start 03/13/22 at 21:45; Stop 03/13/22 at 22:44; Status DC Metoclopramide HCl (Reglan Vial) 10 mg 1X ONCE IVP Last administered on 03/13/22at 21:58; Start 03/13/22 at 22:00; Stop 03/13/22 at 22:01; Status DC Prochlorperazine Edisylate (Compazine) 10 mg 1X ONCE IV Last administered on 03/13/22at 23:30; Start 03/13/22 at 23:00; Stop 03/13/22 at 23:01; Status DC Ondansetron HCl (Zofran) 4 mg PRN Q8HRS PRN IVP NAUSEA/VOMITING; Start 03/14/22 at 00:15; Stop 03/15/22 at 00:14 Fentanyl Citrate (Fentanyl 2ml Vial) 50 mcg PRN Q1HR PRN IVP PAIN; Start 03/14/22 at 00:15; Stop 03/15/22 at 00:14 Sodium Chloride 1,000 ml @ 100 mls/hr 1X ONCE IV ; Start 03/14/22 at 00:15; Stop 03/14/22 at 10:14 Metoclopramide HCl (Reglan Vial) 10 mg TID PRN IVP NAUSEA/VOMITING; Start 03/14/22 at 00:15 Active Scripts Active Percocet 5-325 Mg Tablet (Oxycodone/Acetaminophen) 1 Each Tablet 1 Tab PO QID Zofran (Ondansetron Hcl) 4 Mg Tablet 1 Tab PO Q6HRS ROS: Review of Systems Review of System REVIEW OF SYSTEMS: GENERAL: Denies weakness SKIN: No bruising, hair changes or rashes. EYES: No blurred, double or loss of vision. NOSE AND THROAT: No history of nosebleeds, hoarseness or sore throat. HEART: No history of palpitations, chest pain or shortness of breath on exertion. LUNGS: Denies cough, hemoptysis, wheezing or shortness of breath. GASTROINTESTINAL: Denies changes in appetite, nausea, vomiting, diarrhea or constipation. GENITOURINARY: No history of frequency, urgency, hesitancy or nocturia. NEUROLOGIC: Denies history of numbness, tingling, or tremor. PSYCHIATRIC: No history of panic, anxiety or depression. ENDOCRINE: No history of heat or cold intolerance, polyuria or polydipsia. EXTREMITIES: Denies joint pain, pain on walking or stiffness. Physical Exam: Vital Signs: Vital Signs Date Time Temp Pulse Resp B/P (MAP) Pulse Ox O2 Delivery O2 Flow Rate FiO2 03/13/22 21:24 75 20 157/68 (97) 99 Room Air 03/13/22 19:56 98.3 98.3 Physcial Exam: General: Well developed, well nourished, no acute distress, well appearing HEENT: Pupils equally round and reactive to light, EOMI, no discharge, normal conjunctiva Neck: Supple, no nuchal rigidity, no JVD, trachea midline, no tenderness Cardiac: RRR, no murmurs, no gallops, no rubs Chest/Lungs: CTAB, no wheeze, no rhonchi, no crackles Abdomen: soft, non-distended, no guarding, no peritoneal signs, mild epigastric discomfort Back: No tenderness Extremities: no edema, pulses intact, non-tender,capillary refill <3 sec bilateral upper and lower extremities, Neuro: Alert and oriented x 4, no focal deficits, normal speech Labs: Labs: Laboratory Tests Test 03/13/22 20:55 03/14/22 01:55 White Blood Count 12.2 x10^3/uL (4.0-11.0) Red Blood Count 5.16 x10^6/uL (3.50-5.40) Hemoglobin 15.4 g/dL (12.0-15.5) Hematocrit 46.1 % (36.0-47.0) Mean Corpuscular Volume 89 fL (79-100) Mean Corpuscular Hemoglobin 30 pg (25-35) Mean Corpuscular Hemoglobin Concent 33 g/dL (31-37) Red Cell Distribution Width 13.5 % (11.5-14.5) Platelet Count 310 x10^3/uL (140-400) Neutrophils (%) (Auto) 66 % (31-73) Lymphocytes (%) (Auto) 23 % (24-48) Monocytes (%) (Auto) 10 % (0-9) Eosinophils (%) (Auto) 1 % (0-3) Basophils (%) (Auto) 1 % (0-3) Neutrophils # (Auto) 8.1 x10^3/uL (1.8-7.7) Lymphocytes # (Auto) 2.8 x10^3/uL (1.0-4.8) Monocytes # (Auto) 1.2 x10^3/uL (0.0-1.1) Eosinophils # (Auto) 0.1 x10^3/uL (0.0-0.7) Basophils # (Auto) 0.1 x10^3/uL (0.0-0.2) Sodium Level 135 mmol/L (136-145) Potassium Level 4.2 mmol/L (3.5-5.1) Chloride Level 99 mmol/L (98-107) Carbon Dioxide Level 21 mmol/L (21-32) Anion Gap 15 (6-14) Blood Urea Nitrogen 39 mg/dL (7-20) Creatinine 0.6 mg/dL (0.6-1.0) Estimated GFR (Cockcroft-Gault) 99.1 BUN/Creatinine Ratio 65 (6-20) Glucose Level 169 mg/dL (70-99) Calcium Level 9.0 mg/dL (8.5-10.1) Magnesium Level 2.7 mg/dL (1.8-2.4) Total Bilirubin 0.7 mg/dL (0.2-1.0) Aspartate Amino Transf (AST/SGOT) 41 U/L (15-37) Alanine Aminotransferase (ALT/SGPT) 38 U/L (14-59) Alkaline Phosphatase 88 U/L (46-116) Total Protein 8.7 g/dL (6.4-8.2) Albumin 4.0 g/dL (3.4-5.0) Albumin/Globulin Ratio 0.9 (1.0-1.7) Lipase 221 U/L (73-393) Ethyl Alcohol Level < 10 mg/dL (0-10) SARS-CoV-2 Antigen (Rapid) Negative (NEGATIVE) Laboratory Tests Test 03/13/22 20:55 03/14/22 01:55 White Blood Count 12.2 x10^3/uL (4.0-11.0) Red Blood Count 5.16 x10^6/uL (3.50-5.40) Hemoglobin 15.4 g/dL (12.0-15.5) Hematocrit 46.1 % (36.0-47.0) Mean Corpuscular Volume 89 fL (79-100) Mean Corpuscular Hemoglobin 30 pg (25-35) Mean Corpuscular Hemoglobin Concent 33 g/dL (31-37) Red Cell Distribution Width 13.5 % (11.5-14.5) Platelet Count 310 x10^3/uL (140-400) Neutrophils (%) (Auto) 66 % (31-73) Lymphocytes (%) (Auto) 23 % (24-48) Monocytes (%) (Auto) 10 % (0-9) Eosinophils (%) (Auto) 1 % (0-3) Basophils (%) (Auto) 1 % (0-3) Neutrophils # (Auto) 8.1 x10^3/uL (1.8-7.7) Lymphocytes # (Auto) 2.8 x10^3/uL (1.0-4.8) Monocytes # (Auto) 1.2 x10^3/uL (0.0-1.1) Eosinophils # (Auto) 0.1 x10^3/uL (0.0-0.7) Basophils # (Auto) 0.1 x10^3/uL (0.0-0.2) Sodium Level 135 mmol/L (136-145) Potassium Level 4.2 mmol/L (3.5-5.1) Chloride Level 99 mmol/L (98-107) Carbon Dioxide Level 21 mmol/L (21-32) Anion Gap 15 (6-14) Blood Urea Nitrogen 39 mg/dL (7-20) Creatinine 0.6 mg/dL (0.6-1.0) Estimated GFR (Cockcroft-Gault) 99.1 BUN/Creatinine Ratio 65 (6-20) Glucose Level 169 mg/dL (70-99) Calcium Level 9.0 mg/dL (8.5-10.1) Magnesium Level 2.7 mg/dL (1.8-2.4) Total Bilirubin 0.7 mg/dL (0.2-1.0) Aspartate Amino Transf (AST/SGOT) 41 U/L (15-37) Alanine Aminotransferase (ALT/SGPT) 38 U/L (14-59) Alkaline Phosphatase 88 U/L (46-116) Total Protein 8.7 g/dL (6.4-8.2) Albumin 4.0 g/dL (3.4-5.0) Albumin/Globulin Ratio 0.9 (1.0-1.7) Lipase 221 U/L (73-393) Ethyl Alcohol Level < 10 mg/dL (0-10) SARS-CoV-2 Antigen (Rapid) Negative (NEGATIVE) Images: Images PROCEDURE: CT ABD PELV W/ IV CONTRST ONLY Exam: CT of abdomen and pelvis with contrast INDICATION: Abdominal pain TECHNIQUE: Sequential axial images through the abdomen and pelvis obtained following the administration of 75 mL of Isovue-370 IV contrast. Sagittal and coronal reformatted images were reconstructed from the axial data and reviewed. Exposure: One or more of the following in the visualized dose reduction techniques were utilized for this examination: 1. Automated exposure control 2. Adjustment of the MA and/or KV according to patient size 3. Use of iterative of reconstructive technique Comparisons: None FINDINGS: Heart size is normal. No pericardial effusion. Visualized lung bases are clear. No pleural effusion. Mild diffuse hepatic steatosis. Spleen, pancreas and adrenals are unremarkable. Gallstones and within the gallbladder. No perinephric inflammation or hydronephrosis. No renal or ureteral calculi are identified. Bladder is decompressed not well evaluated. Uterus is absent. No abnormal adnexal mass. Few scattered diverticula in the sigmoid colon. Remainder of the large and small bowel are unremarkable. Appendix is nonidentified. No free intra-abdominal air or fluid. No obstruction. Abdominal aorta has normal course and caliber. Abdominal vasculature is patent. No enlarged intra-abdominal lymph nodes are identified. No suspicious osseous lesions or acute fractures. IMPRESSION: 1. Cholelithiasis. 2. No acute process identified in the abdomen or pelvis. PROCEDURE: ABDOMEN LTD EXAM: ULTRASOUND ABDOMEN LIMITED CLINICAL HISTORY: Reason: epigastric pain r/o gallstones / Spl. Instructions: / History: COMPARISON: None available. TECHNIQUE: Limited ultrasound examination of the right upper quadrant of the abdomen was performed. FINDINGS: Liver contour is normal. Increased echogenicity of the liver. Gallbladder is partially distended. Gallstones and within the gallbladder. No pericholecystic fluid or wall thickening. Common bile duct is not well visualized. Right kidney measures 11.5 cm in long axis. No hydronephrosis. Visualized portions aorta and IVC are unremarkable. IMPRESSION: 1. Cholelithiasis without secondary evidence for acute cholecystitis. 2. Hepatic steatosis. 3. No right-sided hydronephrosis. Assessment/Plan Assessment/Plan Symptomatic cholelithiasis Acute electrolyte derangementhyponatremia due to volume depletion Prerenal azotemia History of diabetes mellitus type 2 History of hypertension History of dyslipidemia Admit to hospitalist service for further management Surgery consult Possible lap armani today NPO Lovenox for DVT prophylaxis Protonix GI prophylaxis ADA diet CODE STATUS full Discussed with RN and SW Disposition inpatient management as above DPOA: Justifications for Admission Other Justification JED KUMAR MD Mar 14, 2022 08:53
[2022-03-14] MEDS ORDERED: ACETAMINOPHEN 325 MG TABLET. PO PRN (09:00)
[2022-03-14] MEDS ORDERED: diphenhydrAMINE 50 MG/ML VIAL IVP PRN (09:00)
[2022-03-14] MEDS ORDERED: ZOLPIDEM 5 MG TABLET. PO PRN (09:00)
[2022-03-14] MEDS: IV NORMAL SALINE 1000ML BAG 1,000 ML IV SCH ×2 (09:00→20:52)
[2022-03-14] MEDS ORDERED: MORPHINE SULFATE 2 MG/ML INJ. IV PRN (09:00)
[2022-03-14] MEDS ORDERED: diphenhydrAMINE HCL 25 MG CAPSULE PO PRN ×2 (09:00)
[2022-03-14] MEDS ORDERED: LORazepam 0.5 MG TABLET PO PRN (09:00)
[2022-03-14] MEDS ORDERED: oxyCODONE/APAP 5/325 1 TAB TABLET PO PRN (09:00)
[2022-03-14] MEDS ORDERED: PROCHLORPERAZINE 10 MG/2 ML VIAL. IV PRN (09:00)
[2022-03-14] MEDS ORDERED: DOCUSATE SODIUM 100 MG CAPSULE. PO PRN (09:00)
[2022-03-14] MEDS ORDERED: SENNOSIDES 8.6 MG TABLET PO PRN (09:00)
[2022-03-14] MEDS ORDERED: DEXTROSE 50% 25 GM / 50ML DISP.SYRIN. IV PRN (09:00)
[2022-03-14 09:01] VITALS: BP 154/64
[2022-03-14] MEDS: ENOXAPARIN 40 MG/0.4 ML SYRINGE. SQ SCH (10:00)
[2022-03-14 11:00] VITALS: BP 154/70
[2022-03-14] MEDS ORDERED: PROPOFOL 10 MG/ML (20ML) VIAL. IV ONE (11:11)
[2022-03-14] MEDS ORDERED: ONDANSETRON PF 4 MG/2 ML VIAL. ONE (11:11)
[2022-03-14] MEDS ORDERED: ROCURONIUM 50 MG/5 ML VIAL. ONE (11:12)
[2022-03-14] MEDS ORDERED: DEXAMETHASONE SOD PHOS 4 MG/ML VIAL ONE (11:12)
[2022-03-14] MEDS ORDERED: fentaNYL PF VIAL 100 MCG/2 ML VIAL ONE (11:16)
[2022-03-14] MEDS: PANTOPRAZOLE 40 MG TABLET.DR. PO SCH (11:30)
[2022-03-14] MEDS: INSULIN LISPRO 300 UNITS/3 ML VIAL. SQ SCH ×2 (12:00→16:26)
[2022-03-14] MEDS ORDERED: PROCHLORPERAZINE 10 MG/2 ML VIAL. IVP PRN (12:45)
[2022-03-14] MEDS ORDERED: MORPHINE SULFATE 2 MG/ML INJ. IVP PRN (12:45)
[2022-03-14] MEDS ORDERED: IV RINGERS,LACTATED 1000ML 1,000 ML IV SCH (12:45)
[2022-03-14] MEDS ORDERED: HYDROmorphone 2 MG/ML INJ. IVP PRN (12:45)
[2022-03-14] MEDS ORDERED: BUPIVACAINE-EPI 0.5% 30 ML VIAL KIT. ONE (13:14)
[2022-03-14] MEDS ORDERED: SURGICEL HEMOSTAT 4X8 EACH. ONE ×3 (13:15→14:19)
[2022-03-14] MEDS ORDERED: IOHEXOL 300 MG/ML 50 ML VIAL. ONE (13:15)
[2022-03-14] MEDS ORDERED: GLYCOPYRROLATE 1 MG/5 ML VIAL. ONE (13:56)
[2022-03-14] MEDS ORDERED: SEVOFLURANE 61 TO 120 MINUTES. IH ONE (14:21)
[2022-03-14] MEDS ORDERED: INSULIN LISPRO 100 UNIT/ML 3ML VIAL for OP,RR ONLY. SQ PRN (14:45)
[2022-03-14] MEDS ORDERED: HYDROmorphone 2 MG/ML INJ. ONE (14:48)
--- NOTE | 2022-03-14 14:53 | PDOC4 ---
Operative Note Operative Note Operative Note: Preoperative Diagnosis: Symptomatic cholelithiasis Postoperative Diagnosis: Same Procedure: Laparoscopic cholecystectomy with intraoperative cholangiogram Surgeons: Adam Anesthesia: Gen. Estimated Blood Loss: 100 mL Specimen: Gallbladder to pathology Drains: None Complications: None Indications: The patient is a 71-year-old female who was admitted with suspected symptomatic cholelithiasis. Surgical treatment was offered by means of a laparoscopic cholecystectomy. The risks of surgery were discussed which include bleeding, infection, bile duct injury, bile leak, pain, the potential for additional surgeries or procedures. The patient understands and would like to proceed. Description: The patient was taken to the operating room and laid supine on the operating table. General anesthesia was performed. The abdomen was prepped with ChloraPrep and draped in a standard surgical fashion. A small infraumbilical incision was made with a scalpel. The Veress needle was then inserted and a pneumoperitoneum was then created. A 5 mm trocar was then inserted and the laparoscope was introduced. In the upper midabdomen an 11 mm trocar was inserted and in the right upper quadrant two 2.3 mm mini lap graspers were inserted. The liver showed nodular changes consistent with chronic inflammation likely from hepatic steatosis. The gallbladder was retracted cephalad. The cystic duct was dissected free from surrounding tissues. One clip was placed on the duct near the gallbladder junction. An opening was made in the duct and a cholangiocatheter placed within and secured with a clip. Using contrast dye and fluoroscopy an intraoperative cholangiogram was performed that appeared unremarkable. The clip and catheter were then withdrawn. Three clips were placed on the cystic duct and it was divided. The cystic artery was then identified, dissected free, doubly clipped and divided as well. The gallbladder was then mobilized away from the liver with cautery. Due to the nodular changes of the liver the plane of separation was very thin. There was some oozing from the gallbladder fossa and a Surgicel pack was applied to assist with this. The gallbladder was then placed in an endoscopic bag and extracted at the superior trocar site. The fascia there was closed with an 0 Vicryl suture and infiltrated with 0.5% marcaine. All blood and irrigation fluid was suctioned and hemostasis was good. The remaining ports were removed and the pneumoperitoneum was relieved. The skin incisions were closed using 4-0 Monocryl suture. Steri-Strips and dressings were then applied. The patient tolerated the procedure well and was sent to the recovery room in stable condition. At the end of the case all counts were correct. JUSTINE PONCE MD Mar 14, 2022 14:53
[2022-03-14] MEDS ORDERED: HYDROcodone/APAP 5/325MG 1 TAB TABLET PO PRN (15:00)
--- NOTE | 2022-03-14 15:06 | RAD ---
Interoperative Cholangiogram: Technique: Contrast is introduced into the cystic duct during the performance of a laparoscopic chol ecystectomy and spot views were obtained on a portable C-arm for an intraoperative cholangiogram. Total fluoroscopic time: 23 seconds Total fluoroscopic spot images: 4 Findings: The central biliary tree is visualized and appears normal. No filling defects are seen. Contrast is s een in the duodenum. Impression: No evidence of a retained stone. Electronically signed by: Stephen Lentz MD (03/14/2022 3:03 PM) [id number]
[2022-03-14] MEDS ORDERED: PROCHLORPERAZINE 10 MG/2 ML VIAL. ONE (15:32)
[2022-03-14 16:00] VITALS: BP 144/72
[2022-03-14 16:18] VITALS: BP 143/70
--- NOTE | 2022-03-14 16:27 | NUR ---
non-administered Humalog @6737. pt blood sugar is 198 and shes not eating
[2022-03-14] MEDS: MORPHINE SULFATE 2 MG/ML INJ. IVP PRN ×2 (16:35→20:49)
[2022-03-14 19:00] VITALS: BP 133/70
[2022-03-14 23:03] VITALS: BP 129/73
[2022-03-15] MEDS: MORPHINE SULFATE 2 MG/ML INJ. IVP PRN ×2 (00:30→03:55)
[2022-03-15 03:00] VITALS: BP 176/65
[2022-03-15] MEDS: oxyCODONE/APAP 5/325 1 TAB TABLET PO PRN ×2 (05:55→10:44)
[2022-03-15 07:30] VITALS: BP 161/53
[2022-03-15] MEDS: IV NORMAL SALINE 1000ML BAG 1,000 ML IV SCH (07:53)
[2022-03-15] MEDS: PANTOPRAZOLE 40 MG TABLET.DR. PO SCH (07:54)
[2022-03-15] MEDS: INSULIN LISPRO 300 UNITS/3 ML VIAL. SQ SCH ×2 (08:00→13:46)
[2022-03-15 08:34] LABS: BASO % 0 % (0-3); EOS % 0 % (0-3); HEMATOCRIT 37.5 % (36.0-47.0); HEMOGLOBIN 12.1 g/dL (12.0-15.5); LYMPH # 1.9 x10^3/uL (1.0-4.8); LYMPH % 11 % (24-48); MEAN CORPUSCULAR HEMOGLOBIN 30 pg (25-35); MEAN CORPUSCULAR HGB CONC 32 g/dL (31-37); MEAN CORPUSCULAR VOLUME 91 fL (79-100); MONO % 12 % (0-9); NEUT # 13.1 x10^3/uL (1.8-7.7); NEUT % 77 % (31-73); PLATELET COUNT 270 x10^3/uL (140-400); RED BLOOD COUNT 4.11 x10^6/uL (3.50-5.40); RED CELL DISTRIBUTION WIDTH 13.3 % (11.5-14.5); WHITE BLOOD COUNT 17.1 x10^3/uL (4.0-11.0)
[2022-03-15 08:48] LABS: ALBUMIN 3.3 g/dL (3.4-5.0); ALBUMIN/GLOBULIN RATIO 0.8 (1.0-1.7); CALCIUM 8.2 mg/dL (8.5-10.1); CREATININE 0.7 mg/dL (0.6-1.0); POTASSIUM 4.3 mmol/L (3.5-5.1); TOTAL BILIRUBIN 0.7 mg/dL (0.2-1.0); TOTAL PROTEIN 7.2 g/dL (6.4-8.2)
[2022-03-15 09:07] LABS: % BANDS 3 % (0-9); % LYMPHS 8 % (24-48); % MONOS 4 % (0-10); % SEGS 85 % (35-66)
[2022-03-15 09:08] LABS: PLT ESTIMATE ADEQUATE (ADEQUATE)
[2022-03-15] MEDS: ENOXAPARIN 40 MG/0.4 ML SYRINGE. SQ SCH (09:41)
[2022-03-15 10:58] LABS: MAGNESIUM 2.2 mg/dL (1.8-2.4); PHOSPHORUS 2.8 mg/dL (2.6-4.7)
[2022-03-15 11:00] VITALS: BP 142/58
--- NOTE | 2022-03-15 11:33 | PDOC ---
[facility] PROGRESS NOTE Date of Service DOS: DATE: 03/15/22 TIME: 11:09 Chief Complaint Chief Complaint Symptomatic cholelithiasis - s/p lap chol on 03/14/2022 Acute electrolyte derangementhyponatremia due to volume depletion Prerenal azotemia History of diabetes mellitus type 2 -hold Metformin for 36 hours after contrast administration History of hypertension History of dyslipidemia Leukocytosis -due to cholecystitis and likely stress-induced. Can follow trend outpatient Admit to hospitalist service for further management Surgery consult ADAT Lovenox for DVT prophylaxis Protonix GI prophylaxis ADA diet CODE STATUS full Discussed with RN and SW Disposition inpatient management as above DPOA: History of Present Illness History of Present Illness 71 year old female with history of diabetes type 2, hypertension, high cholesterol, presented to the ED today complaining of 7 out of 10 epigastric abdominal pain with nausea and vomiting, symptoms have been going on for 3 days. Patient denies any diarrhea. Denies any chest pain or shortness of breath. Denies anything specifically exacerbating or relieving the symptoms 03/15: Uncomplicated lap armani on 03/14/2022. WBC today elevated at 17 and glucose in upper 170s. Symptomatically able to eat breakfast without signific ant pain she is belching passing flatus no bowel movement. No dysuria no shortness of breath or chest pain. She is asking if she can be discharged home and have medication sent to [facility] in [place]. Awaiting repeat surgical eval postoperatively on day 1. Vitals/I&O Vitals/I&O: Vital Signs Date Time Temp Pulse Resp B/P (MAP) Pulse Ox O2 Delivery O2 Flow Rate FiO2 03/15/22 07:30 98.1 90 20 161/53 (89) 97 Room Air 98.1 03/14/22 15:40 6.0 I & O 03/14/22 03/14/22 03/15/22 15:00 23:00 07:00 Intake Total 1010 ml 200 ml Output Total 100 ml Balance 910 ml 200 ml Physical Exam General: Alert, Oriented X3, Cooperative Heart: Regular rate, Normal S1, Normal S2 Abdomen: Soft, Other (epigastric TTP ) Extremities: No clubbing, No cyanosis Skin: No rashes, No breakdown Labs Labs: Laboratory Tests Test 03/14/22 15:16 03/14/22 16:21 03/14/22 20:58 03/15/22 07:36 Glucose (Fingerstick) 182 mg/dL (70-99) 198 mg/dL (70-99) 211 mg/dL (70-99) 179 mg/dL (70-99) Test 03/15/22 07:55 White Blood Count 17.1 x10^3/uL (4.0-11.0) Red Blood Count 4.11 x10^6/uL (3.50-5.40) Hemoglobin 12.1 g/dL (12.0-15.5) Hematocrit 37.5 % (36.0-47.0) Mean Corpuscular Volume 91 fL (79-100) Mean Corpuscular Hemoglobin 30 pg (25-35) Mean Corpuscular Hemoglobin Concent 32 g/dL (31-37) Red Cell Distribution Width 13.3 % (11.5-14.5) Platelet Count 270 x10^3/uL (140-400) Neutrophils (%) (Auto) 77 % (31-73) Lymphocytes (%) (Auto) 11 % (24-48) Monocytes (%) (Auto) 12 % (0-9) Eosinophils (%) (Auto) 0 % (0-3) Basophils (%) (Auto) 0 % (0-3) Neutrophils # (Auto) 13.1 x10^3/uL (1.8-7.7) Lymphocytes # (Auto) 1.9 x10^3/uL (1.0-4.8) Monocytes # (Auto) 2.0 x10^3/uL (0.0-1.1) Eosinophils # (Auto) 0.0 x10^3/uL (0.0-0.7) Basophils # (Auto) 0.0 x10^3/uL (0.0-0.2) Segmented Neutrophils % 85 % (35-66) Band Neutrophils % 3 % (0-9) Lymphocytes % 8 % (24-48) Monocytes % 4 % (0-10) Platelet Estimate Adequate (ADEQUATE) Sodium Level 134 mmol/L (136-145) Potassium Level 4.3 mmol/L (3.5-5.1) Chloride Level 100 mmol/L (98-107) Carbon Dioxide Level 18 mmol/L (21-32) Anion Gap 16 (6-14) Blood Urea Nitrogen 22 mg/dL (7-20) Creatinine 0.7 mg/dL (0.6-1.0) Estimated GFR (Cockcroft-Gault) 83.0 BUN/Creatinine Ratio 31 (6-20) Glucose Level 199 mg/dL (70-99) Calcium Level 8.2 mg/dL (8.5-10.1) Phosphorus Level 2.8 mg/dL (2.6-4.7) Magnesium Level 2.2 mg/dL (1.8-2.4) Total Bilirubin 0.7 mg/dL (0.2-1.0) Aspartate Amino Transf (AST/SGOT) 34 U/L (15-37) Alanine Aminotransferase (ALT/SGPT) 37 U/L (14-59) Alkaline Phosphatase 68 U/L (46-116) Total Protein 7.2 g/dL (6.4-8.2) Albumin 3.3 g/dL (3.4-5.0) Albumin/Globulin Ratio 0.8 (1.0-1.7) Assessment and Plan Assessmemt and Plan Problems Medical Problems: (1) Cholelithiasis Status: Acute (2) Epigastric abdominal pain Status: Acute (3) Intractable nausea and vomiting Status: Acute Comment Review of Relevant I have reviewed the following items linda (where applicable) has been applied. Medications: Current Medications Medications (Trade) Dose Ordered Sig/Denise Route PRN Reason Start Time Stop Time Status Last Admin Dose Admin Insulin Human Lispro (HumaLOG) 0-7 UNITS TIDWMEALS SQ 03/14/22 12:00 03/15/22 08:00 Pantoprazole Sodium (Protonix) 40 mg DAILYAC PO 03/14/22 11:30 03/15/22 07:54 Ringer's Solution 1,000 ml @ 30 mls/hr Q24H IV 03/14/22 12:45 03/15/22 00:44 DC 03/14/22 12:39 Prochlorperazine Edisylate (Compazine) 5 mg PACU PRN PRN IVP NAUSEA, MRX1 03/14/22 12:45 03/15/22 12:44 03/14/22 15:34 Bupivacaine HCl/ Epinephrine Bitart (Sensorcain-Epi 0.5% Kit) 30 ml STK-MED ONCE .ROUTE 03/14/22 13:14 4/14/22 13:15 DC 03/14/22 14:07 Iohexol (Omnipaque 300 Mg/ml) 50 ml STK-MED ONCE .ROUTE 03/14/22 13:15 03/14/22 13:15 DC 03/14/22 14:18 Cellulose (Surgicel Hemostat 4x8) 1 each STK-MED ONCE .ROUTE 03/14/22 13:15 03/14/22 13:15 DC 03/14/22 14:21 Cellulose (Surgicel Hemostat 4x8) 1 each STK-MED ONCE .ROUTE 03/14/22 14:19 03/14/22 14:19 DC 03/14/22 14:34 Insulin Human Lispro (HumaLOG VIAL for OP,RR ONLY) 0-10 units PRN Q1HR PRN SQ PER PROTOCOL 03/14/22 14:45 03/15/22 14:44 03/14/22 15:18 Justifications for Admission Other Justification Symptomati cholelithiasis KATHERIN YADAV MD Mar 15, 2022 11:33
[2022-03-15] MEDS ORDERED: OXYC1TAB15 PO (12:10)
--- NOTE | 2022-03-15 12:12 | PDOC3 ---
Discharge Summary Visit Information Date of Admission: Mar 13, 2022 Date of Discharge: Mar 15, 2022 Admitting Diagnosis: Symptomatic cholelithiasis/cholecystitis Final Diagnosis Problems Medical Problems: (1) Cholelithiasis Status: Acute (2) Epigastric abdominal pain Status: Acute (3) Intractable nausea and vomiting Status: Acute Brief Hospital Course Allergies Allergies Coded Allergies Type Severity Reaction Last Updated Verified Penicillins Allergy Intermediate 03/13/22 Yes latex Allergy Intermediate Unknown 03/13/22 Yes Vital Signs Vital Signs Date Time Temp Pulse Resp B/P (MAP) Pulse Ox O2 Delivery O2 Flow Rate FiO2 03/15/22 11:14 Room Air 03/15/22 11:00 97.9 87 20 142/58 (86) 96 97.9 03/14/22 15:40 6.0 Lab Results Laboratory Tests Test 03/13/22 20:55 03/14/22 01:55 03/14/22 15:16 03/14/22 16:21 White Blood Count 12.2 x10^3/uL (4.0-11.0) Red Blood Count 5.16 x10^6/uL (3.50-5.40) Hemoglobin 15.4 g/dL (12.0-15.5) Hematocrit 46.1 % (36.0-47.0) Mean Corpuscular Volume 89 fL (79-100) Mean Corpuscular Hemoglobin 30 pg (25-35) Mean Corpuscular Hemoglobin Concent 33 g/dL (31-37) Red Cell Distribution Width 13.5 % (11.5-14.5) Platelet Count 310 x10^3/uL (140-400) Neutrophils (%) (Auto) 66 % (31-73) Lymphocytes (%) (Auto) 23 % (24-48) Monocytes (%) (Auto) 10 % (0-9) Eosinophils (%) (Auto) 1 % (0-3) Basophils (%) (Auto) 1 % (0-3) Neutrophils # (Auto) 8.1 x10^3/uL (1.8-7.7) Lymphocytes # (Auto) 2.8 x10^3/uL (1.0-4.8) Monocytes # (Auto) 1.2 x10^3/uL (0.0-1.1) Eosinophils # (Auto) 0.1 x10^3/uL (0.0-0.7) Basophils # (Auto) 0.1 x10^3/uL (0.0-0.2) Sodium Level 135 mmol/L (136-145) Potassium Level 4.2 mmol/L (3.5-5.1) Chloride Level 99 mmol/L (98-107) Carbon Dioxide Level 21 mmol/L (21-32) Anion Gap 15 (6-14) Blood Urea Nitrogen 39 mg/dL (7-20) Creatinine 0.6 mg/dL (0.6-1.0) Estimated GFR (Cockcroft-Gault) 99.1 BUN/Creatinine Ratio 65 (6-20) Glucose Level 169 mg/dL (70-99) Calcium Level 9.0 mg/dL (8.5-10.1) Magnesium Level 2.7 mg/dL (1.8-2.4) Total Bilirubin 0.7 mg/dL (0.2-1.0) Aspartate Amino Transf (AST/SGOT) 41 U/L (15-37) Alanine Aminotransferase (ALT/SGPT) 38 U/L (14-59) Alkaline Phosphatase 88 U/L (46-116) Total Protein 8.7 g/dL (6.4-8.2) Albumin 4.0 g/dL (3.4-5.0) Albumin/Globulin Ratio 0.9 (1.0-1.7) Lipase 221 U/L (73-393) Ethyl Alcohol Level < 10 mg/dL (0-10) Coronavirus (COVID-19)(PCR) Not detected (NOT DETECTD) SARS-CoV-2 Antigen (Rapid) Negative (NEGATIVE) Glucose (Fingerstick) 182 mg/dL (70-99) 198 mg/dL (70-99) Test 03/14/22 20:58 03/15/22 07:36 03/15/22 07:55 03/15/22 12:05 Glucose (Fingerstick) 211 mg/dL (70-99) 179 mg/dL (70-99) 172 mg/dL (70-99) White Blood Count 17.1 x10^3/uL (4.0-11.0) Red Blood Count 4.11 x10^6/uL (3.50-5.40) Hemoglobin 12.1 g/dL (12.0-15.5) Hematocrit 37.5 % (36.0-47.0) Mean Corpuscular Volume 91 fL (79-100) Mean Corpuscular Hemoglobin 30 pg (25-35) Mean Corpuscular Hemoglobin Concent 32 g/dL (31-37) Red Cell Distribution Width 13.3 % (11.5-14.5) Platelet Count 270 x10^3/uL (140-400) Neutrophils (%) (Auto) 77 % (31-73) Lymphocytes (%) (Auto) 11 % (24-48) Monocytes (%) (Auto) 12 % (0-9) Eosinophils (%) (Auto) 0 % (0-3) Basophils (%) (Auto) 0 % (0-3) Neutrophils # (Auto) 13.1 x10^3/uL (1.8-7.7) Lymphocytes # (Auto) 1.9 x10^3/uL (1.0-4.8) Monocytes # (Auto) 2.0 x10^3/uL (0.0-1.1) Eosinophils # (Auto) 0.0 x10^3/uL (0.0-0.7) Basophils # (Auto) 0.0 x10^3/uL (0.0-0.2) Segmented Neutrophils % 85 % (35-66) Band Neutrophils % 3 % (0-9) Lymphocytes % 8 % (24-48) Monocytes % 4 % (0-10) Platelet Estimate Adequate (ADEQUATE) Sodium Level 134 mmol/L (136-145) Potassium Level 4.3 mmol/L (3.5-5.1) Chloride Level 100 mmol/L (98-107) Carbon Dioxide Level 18 mmol/L (21-32) Anion Gap 16 (6-14) Blood Urea Nitrogen 22 mg/dL (7-20) Creatinine 0.7 mg/dL (0.6-1.0) Estimated GFR (Cockcroft-Gault) 83.0 BUN/Creatinine Ratio 31 (6-20) Glucose Level 199 mg/dL (70-99) Calcium Level 8.2 mg/dL (8.5-10.1) Phosphorus Level 2.8 mg/dL (2.6-4.7) Magnesium Level 2.2 mg/dL (1.8-2.4) Total Bilirubin 0.7 mg/dL (0.2-1.0) Aspartate Amino Transf (AST/SGOT) 34 U/L (15-37) Alanine Aminotransferase (ALT/SGPT) 37 U/L (14-59) Alkaline Phosphatase 68 U/L (46-116) Total Protein 7.2 g/dL (6.4-8.2) Albumin 3.3 g/dL (3.4-5.0) Albumin/Globulin Ratio 0.8 (1.0-1.7) Laboratory Tests Test 03/14/22 15:16 03/14/22 16:21 03/14/22 20:58 03/15/22 07:36 Glucose (Fingerstick) 182 mg/dL (70-99) 198 mg/dL (70-99) 211 mg/dL (70-99) 179 mg/dL (70-99) Test 03/15/22 07:55 03/15/22 12:05 White Blood Count 17.1 x10^3/uL (4.0-11.0) Red Blood Count 4.11 x10^6/uL (3.50-5.40) Hemoglobin 12.1 g/dL (12.0-15.5) Hematocrit 37.5 % (36.0-47.0) Mean Corpuscular Volume 91 fL (79-100) Mean Corpuscular Hemoglobin 30 pg (25-35) Mean Corpuscular Hemoglobin Concent 32 g/dL (31-37) Red Cell Distribution Width 13.3 % (11.5-14.5) Platelet Count 270 x10^3/uL (140-400) Neutrophils (%) (Auto) 77 % (31-73) Lymphocytes (%) (Auto) 11 % (24-48) Monocytes (%) (Auto) 12 % (0-9) Eosinophils (%) (Auto) 0 % (0-3) Basophils (%) (Auto) 0 % (0-3) Neutrophils # (Auto) 13.1 x10^3/uL (1.8-7.7) Lymphocytes # (Auto) 1.9 x10^3/uL (1.0-4.8) Monocytes # (Auto) 2.0 x10^3/uL (0.0-1.1) Eosinophils # (Auto) 0.0 x10^3/uL (0.0-0.7) Basophils # (Auto) 0.0 x10^3/uL (0.0-0.2) Segmented Neutrophils % 85 % (35-66) Band Neutrophils % 3 % (0-9) Lymphocytes % 8 % (24-48) Monocytes % 4 % (0-10) Platelet Estimate Adequate (ADEQUATE) Sodium Level 134 mmol/L (136-145) Potassium Level 4.3 mmol/L (3.5-5.1) Chloride Level 100 mmol/L (98-107) Carbon Dioxide Level 18 mmol/L (21-32) Anion Gap 16 (6-14) Blood Urea Nitrogen 22 mg/dL (7-20) Creatinine 0.7 mg/dL (0.6-1.0) Estimated GFR (Cockcroft-Gault) 83.0 BUN/Creatinine Ratio 31 (6-20) Glucose Level 199 mg/dL (70-99) Calcium Level 8.2 mg/dL (8.5-10.1) Phosphorus Level 2.8 mg/dL (2.6-4.7) Magnesium Level 2.2 mg/dL (1.8-2.4) Total Bilirubin 0.7 mg/dL (0.2-1.0) Aspartate Amino Transf (AST/SGOT) 34 U/L (15-37) Alanine Aminotransferase (ALT/SGPT) 37 U/L (14-59) Alkaline Phosphatase 68 U/L (46-116) Total Protein 7.2 g/dL (6.4-8.2) Albumin 3.3 g/dL (3.4-5.0) Albumin/Globulin Ratio 0.8 (1.0-1.7) Glucose (Fingerstick) 172 mg/dL (70-99) Brief Hospital Course 71 year old female with history of diabetes type 2, hypertension, high cholesterol, presented to the ED today complaining of 7 out of 10 epigastric abdominal pain with nausea and vomiting, symptoms have been going on for 3 days. Patient denies any diarrhea. Denies any chest pain or shortness of breath. Denies anything specifically exacerbating or relieving the symptoms 03/15: Uncomplicated lap armani on 03/14/2022. WBC today elevated at 17 and glucose in upper 170s. Symptomatically able to eat breakfast without significant pain she is belching passing flatus no bowel movement. No dysuria no shortness of breath or chest pain. She is asking if she can be discharged home and have medication sent to [facility] in [place]. Ok for d/c on surgical eval postoperatively on day 1. Consults: general surgery Problem list: Symptomatic cholelithiasis - s/p lap chol on 03/14/2022 Acute electrolyte derangementhyponatremia due to volume depletion Prerenal azotemia History of diabetes mellitus type 2 -hold Metformin for 36 hours after contrast administration History of hypertension History of dyslipidemia Leukocytosis -due to cholecystitis and likely stress-induced. Can follow trend outpatient Greater than 30 minutes spent on discharge home with self care. Discharge Information Condition at Discharge: Improved Follow Up: Weeks Disposition/Orders: D/C to Home Scheduled Ondansetron Hcl (Zofran) 4 Mg Tablet, 1 TAB PO Q6HRS, #20 Prescribed by: ELAINE DELGADO MD on 10/21/18 1749 Scheduled PRN Oxycodone/Apap 5-325 (Percocet 5-325 Mg Tablet ) 1 Each Tablet, 1 TAB PO PRN Q6HRS PRN for SEVERE PAIN 7-10 for 6 Days, #12 Prescribed by: KATHERIN YADAV MD on 03/15/22 1211 Justicifation of Admission Dx: Justifications for Admission: Justification of Admission Dx: Yes KATHERIN YADAV MD Mar 15, 2022 12:12
--- NOTE | 2022-03-15 12:51 | PDOC ---
SURGICAL PROGRESS NOTE DATE: 03/15/22 TIME: 12:50 Subjective tolerating diet minimal pain Vital Signs Vital Signs Date Time Temp Pulse Resp B/P (MAP) Pulse Ox O2 Delivery O2 Flow Rate FiO2 03/15/22 11:14 Room Air 03/15/22 11:00 97.9 87 20 142/58 (86) 96 97.9 03/14/22 15:40 6.0 I&O Intake and Output 03/15/22 07:00 Intake Total 1210 ml Output Total 100 ml Balance 1110 ml Intake Oral 260 ml IV Total 950 ml Output Estimated Blood Loss 100 ml # Voids 3 General: Alert, Oriented X3, Cooperative Abdomen: Soft, Other (lap dressings dry) Labs Laboratory Tests Test 03/13/22 20:55 03/14/22 01:55 03/14/22 15:16 03/14/22 16:21 White Blood Count 12.2 x10^3/uL (4.0-11.0) Red Blood Count 5.16 x10^6/uL (3.50-5.40) Hemoglobin 15.4 g/dL (12.0-15.5) Hematocrit 46.1 % (36.0-47.0) Mean Corpuscular Volume 89 fL (79-100) Mean Corpuscular Hemoglobin 30 pg (25-35) Mean Corpuscular Hemoglobin Concent 33 g/dL (31-37) Red Cell Distribution Width 13.5 % (11.5-14.5) Platelet Count 310 x10^3/uL (140-400) Neutrophils (%) (Auto) 66 % (31-73) Lymphocytes (%) (Auto) 23 % (24-48) Monocytes (%) (Auto) 10 % (0-9) Eosinophils (%) (Auto) 1 % (0-3) Basophils (%) (Auto) 1 % (0-3) Neutrophils # (Auto) 8.1 x10^3/uL (1.8-7.7) Lymphocytes # (Auto) 2.8 x10^3/uL (1.0-4.8) Monocytes # (Auto) 1.2 x10^3/uL (0.0-1.1) Eosinophils # (Auto) 0.1 x10^3/uL (0.0-0.7) Basophils # (Auto) 0.1 x10^3/uL (0.0-0.2) Sodium Level 135 mmol/L (136-145) Potassium Level 4.2 mmol/L (3.5-5.1) Chloride Level 99 mmol/L (98-107) Carbon Dioxide Level 21 mmol/L (21-32) Anion Gap 15 (6-14) Blood Urea Nitrogen 39 mg/dL (7-20) Creatinine 0.6 mg/dL (0.6-1.0) Estimated GFR (Cockcroft-Gault) 99.1 BUN/Creatinine Ratio 65 (6-20) Glucose Level 169 mg/dL (70-99) Calcium Level 9.0 mg/dL (8.5-10.1) Magnesium Level 2.7 mg/dL (1.8-2.4) Total Bilirubin 0.7 mg/dL (0.2-1.0) Aspartate Amino Transf (AST/SGOT) 41 U/L (15-37) Alanine Aminotransferase (ALT/SGPT) 38 U/L (14-59) Alkaline Phosphatase 88 U/L (46-116) Total Protein 8.7 g/dL (6.4-8.2) Albumin 4.0 g/dL (3.4-5.0) Albumin/Globulin Ratio 0.9 (1.0-1.7) Lipase 221 U/L (73-393) Ethyl Alcohol Level < 10 mg/dL (0-10) Coronavirus (COVID-19)(PCR) Not detected (NOT DETECTD) SARS-CoV-2 Antigen (Rapid) Negative (NEGATIVE) Glucose (Fingerstick) 182 mg/dL (70-99) 198 mg/dL (70-99) Test 03/14/22 20:58 03/15/22 07:36 03/15/22 07:55 03/15/22 12:05 Glucose (Fingerstick) 211 mg/dL (70-99) 179 mg/dL (70-99) 172 mg/dL (70-99) White Blood Count 17.1 x10^3/uL (4.0-11.0) Red Blood Count 4.11 x10^6/uL (3.50-5.40) Hemoglobin 12.1 g/dL (12.0-15.5) Hematocrit 37.5 % (36.0-47.0) Mean Corpuscular Volume 91 fL (79-100) Mean Corpuscular Hemoglobin 30 pg (25-35) Mean Corpuscular Hemoglobin Concent 32 g/dL (31-37) Red Cell Distribution Width 13.3 % (11.5-14.5) Platelet Count 270 x10^3/uL (140-400) Neutrophils (%) (Auto) 77 % (31-73) Lymphocytes (%) (Auto) 11 % (24-48) Monocytes (%) (Auto) 12 % (0-9) Eosinophils (%) (Auto) 0 % (0-3) Basophils (%) (Auto) 0 % (0-3) Neutrophils # (Auto) 13.1 x10^3/uL (1.8-7.7) Lymphocytes # (Auto) 1.9 x10^3/uL (1.0-4.8) Monocytes # (Auto) 2.0 x10^3/uL (0.0-1.1) Eosinophils # (Auto) 0.0 x10^3/uL (0.0-0.7) Basophils # (Auto) 0.0 x10^3/uL (0.0-0.2) Segmented Neutrophils % 85 % (35-66) Band Neutrophils % 3 % (0-9) Lymphocytes % 8 % (24-48) Monocytes % 4 % (0-10) Platelet Estimate Adequate (ADEQUATE) Sodium Level 134 mmol/L (136-145) Potassium Level 4.3 mmol/L (3.5-5.1) Chloride Level 100 mmol/L (98-107) Carbon Dioxide Level 18 mmol/L (21-32) Anion Gap 16 (6-14) Blood Urea Nitrogen 22 mg/dL (7-20) Creatinine 0.7 mg/dL (0.6-1.0) Estimated GFR (Cockcroft-Gault) 83.0 BUN/Creatinine Ratio 31 (6-20) Glucose Level 199 mg/dL (70-99) Calcium Level 8.2 mg/dL (8.5-10.1) Phosphorus Level 2.8 mg/dL (2.6-4.7) Magnesium Level 2.2 mg/dL (1.8-2.4) Total Bilirubin 0.7 mg/dL (0.2-1.0) Aspartate Amino Transf (AST/SGOT) 34 U/L (15-37) Alanine Aminotransferase (ALT/SGPT) 37 U/L (14-59) Alkaline Phosphatase 68 U/L (46-116) Total Protein 7.2 g/dL (6.4-8.2) Albumin 3.3 g/dL (3.4-5.0) Albumin/Globulin Ratio 0.8 (1.0-1.7) Laboratory Tests Test 03/14/22 15:16 03/14/22 16:21 03/14/22 20:58 03/15/22 07:36 Glucose (Fingerstick) 182 mg/dL (70-99) 198 mg/dL (70-99) 211 mg/dL (70-99) 179 mg/dL (70-99) Test 03/15/22 07:55 03/15/22 12:05 White Blood Count 17.1 x10^3/uL (4.0-11.0) Red Blood Count 4.11 x10^6/uL (3.50-5.40) Hemoglobin 12.1 g/dL (12.0-15.5) Hematocrit 37.5 % (36.0-47.0) Mean Corpuscular Volume 91 fL (79-100) Mean Corpuscular Hemoglobin 30 pg (25-35) Mean Corpuscular Hemoglobin Concent 32 g/dL (31-37) Red Cell Distribution Width 13.3 % (11.5-14.5) Platelet Count 270 x10^3/uL (140-400) Neutrophils (%) (Auto) 77 % (31-73) Lymphocytes (%) (Auto) 11 % (24-48) Monocytes (%) (Auto) 12 % (0-9) Eosinophils (%) (Auto) 0 % (0-3) Basophils (%) (Auto) 0 % (0-3) Neutrophils # (Auto) 13.1 x10^3/uL (1.8-7.7) Lymphocytes # (Auto) 1.9 x10^3/uL (1.0-4.8) Monocytes # (Auto) 2.0 x10^3/uL (0.0-1.1) Eosinophils # (Auto) 0.0 x10^3/uL (0.0-0.7) Basophils # (Auto) 0.0 x10^3/uL (0.0-0.2) Segmented Neutrophils % 85 % (35-66) Band Neutrophils % 3 % (0-9) Lymphocytes % 8 % (24-48) Monocytes % 4 % (0-10) Platelet Estimate Adequate (ADEQUATE) Sodium Level 134 mmol/L (136-145) Potassium Level 4.3 mmol/L (3.5-5.1) Chloride Level 100 mmol/L (98-107) Carbon Dioxide Level 18 mmol/L (21-32) Anion Gap 16 (6-14) Blood Urea Nitrogen 22 mg/dL (7-20) Creatinine 0.7 mg/dL (0.6-1.0) Estimated GFR (Cockcroft-Gault) 83.0 BUN/Creatinine Ratio 31 (6-20) Glucose Level 199 mg/dL (70-99) Calcium Level 8.2 mg/dL (8.5-10.1) Phosphorus Level 2.8 mg/dL (2.6-4.7) Magnesium Level 2.2 mg/dL (1.8-2.4) Total Bilirubin 0.7 mg/dL (0.2-1.0) Aspartate Amino Transf (AST/SGOT) 34 U/L (15-37) Alanine Aminotransferase (ALT/SGPT) 37 U/L (14-59) Alkaline Phosphatase 68 U/L (46-116) Total Protein 7.2 g/dL (6.4-8.2) Albumin 3.3 g/dL (3.4-5.0) Albumin/Globulin Ratio 0.8 (1.0-1.7) Glucose (Fingerstick) 172 mg/dL (70-99) Problem List Problems Medical Problems: (1) Cholelithiasis Status: Acute (2) Epigastric abdominal pain Status: Acute (3) Intractable nausea and vomiting Status: Acute Assessment/Plan s/p armani ok to ct home Justicifation of Admission Dx: Justifications for Admission: Justification of Admission Dx: Yes LUDIN LAZARO [employer]IAL [employer] INTERPRETER Mar 15, 2022 12:51
--- NOTE | 2022-03-15 14:52 | NUR ---
patient discharged to home with spouse. taken out by wheelchair.
--- NOTE | 2022-03-18 15:11 | PATHOLOGY ---
[facility] Accession Number: [id number] . 01 Material submitted: . gallbladder - GALLBLADDER AND CONTENTS . 02 Diagnosis: Gallbladder, laparoscopic cholecystectomy: - Cholelithiasis. - Chronic cholecystitis. (M:[facility]; 03/18/2022) [facility] 03/18/2022 1341 Local . 02 Comment: There is no evidence of malignancy. ([facility]; 03/18/2022) . 02 Electronically signed: . Po Bhatt MD, Pathologist NPI- [id number] . 01 Gross description: . Fixative: Formalin Labeled: Gallbladder and contents Specimen received: Previously disrupted with a 0.9 x 0.2 cm transmural defect Dimensions: 8.6 x 3.0 x 2.4 cm Lymph node: Not identified Serosa: Blue-green, smooth and dusky Calculi: Multiple brown-black roughened choleliths aggregating 6.4 x 5.5 x 0.8 cm Mucosa: Brown-green and velvety without cedillo stippling Average wall thickness: 0.2 cm Abnormalities: None A1: Gallbladder, represented ([facility]; 03/15/2022) DKA/DKA 03/15/2022 1823 Local . 02 Pathologist provided ICD-10: K80.10 . 02 CPT . 116638 Specimen Comment: A courtesy copy of this report has been sent to [phone] Specimen Comment: [id number], Specimen Comment: Report sent to , DR ZAYAS / DR KUMAR Specimen Comment: A duplicate report has been generated due to demographic updates. Performed at: 01 [facility] [address] [place] [address] [address], [place], [place] [id number] MD Gordon Johansen MD Phone: [phone] Performed at: [address] [id number] MD Po Bhatt MD Phone: [phone]
== END 2022-03-15 14:40 | disposition home or self-care (01) | DRG 415 ==
LOC: ER 19:18 → ED HOLD 23:29 → 4 NORTH 03-14 01:20
PROVIDERS: ADMIT Internal Medicine; ATTEND Internal Medicine
PROC: BF101ZZ Fluoroscopy of Bile Ducts using Low Osmolar Contrast (ICD-10-PCS; 2022-03-14)
PROC: 0FT40ZZ Resection of Gallbladder, Open Approach (ICD-10-PCS; principal; 2022-03-14 13:15)
DX: K80.10 Calculus of gallbladder with chronic cholecystitis without obstruction (principal); E87.1 Hypo-osmolality and hyponatremia; E11.9 Type 2 diabetes mellitus without complications; E78.00 Pure hypercholesterolemia, unspecified; E78.5 Hyperlipidemia, unspecified; E86.9 Volume depletion, unspecified; I10 Essential (primary) hypertension; K76.0 Fatty (change of) liver, not elsewhere classified; Z90.710 Acquired absence of both cervix and uterus; F32.A Depression, unspecified; Z88.0 Allergy status to penicillin; Z91.040 Latex allergy status
CPT/HCPCS: 36415; 74177; 74300; 76705; 80053; 82962; 83690; 83735; 84100; 85007; 85025; 87426; 88304; 96361; 96374; 96375; A4213; A4314; A4364; A4452; A4657; A4930; A6219; C1887; G0480; J0780; J1100; J1170; J1650; J1815; J1956; J2270; J2405; J2704; J2765; J3010; J3490; J7030; J7120; Q9967; U0003; 99285-25; G0378